=== PATIENT | female | born 1970 | race American Indian/Alaskan Native ===

== ENCOUNTER 2020-06-12 00:53 | Inpatient (IN) | payer OTHER, SELFPAY ==
[2020-06-12] MEDS ORDERED: SODIUM CHLORIDE 0.9% 1000 ML 1,000 ML IV ONE (01:23)
[2020-06-12] MEDS ORDERED: LORazepam 2 MG/ML VIAL IV ONE ×2 (01:31→01:51)
--- NOTE | 2020-06-12 01:34 | Emergency Department Report ---
ED Seizure HPI - General Chief Complaint: Seizure Stated Complaint: SEIZURE Time Seen by Provider: 06/12/20 01:19 Source: patient, EMS Mode of arrival: Stretcher Limitations: Altered Mental Status - History of Present Illness Initial Comments: 50-year-old female presents to ED following seizure at home. Patient has history of seizures, chronic back pain. Reports noncompliance with phenobarbital. Patient cannot remember the last time she took it. She is alert and oriented at this time. Only complaint is a headache. Patient was given Versed 5 mg IM by EMS prior to arrival. MD Complaint: seizure -: This morning Witnessed:: Yes Seizure History: known seizure disorder, history of non-compliance Place: home Associated Symptoms: denies: fever/chills Treatments Prior to Arrival: benzodiazepines (Versed 5 mg IM) - Related Data Previous Rx's Medication Instructions Recorded Last Taken Type PHENobarbitaL [Phenobarbital] 64.8 mg PO BID #60 tablet 02/20/20 Unknown Rx Allergies Allergy/AdvReac Type Severity Reaction Status Date / Time carisoprodol [From Soma] Allergy Hives Verified 02/20/20 04:11 divalproex sodium Allergy Rash Verified 02/20/20 04:11 [From Depakote] levetiracetam [From Keppra] Allergy Unknown Verified 06/12/20 01:11 ED Review of Systems ROS: Stated complaint: SEIZURE Other details as noted in HPI Comment: All other systems reviewed and negative Constitutional: denies: fever Neurological: as per HPI, headache ED Past Medical Hx - Past Medical History Previous Medical History?: Yes Hx Seizures: Yes Hx Psychiatric Treatment: Yes (depression ptsd) Hx Asthma: Yes Additional medical history: Chronic back pain. Irregular heart beat - Surgical History Past Surgical History?: Yes Additional Surgical History: Tubal Ligation. Hysterectomy - Social History Smoking Status: Never Smoker Substance Use Type: None - Medications Home Medications: Home Medications Medication Instructions Recorded Confirmed Last Taken Type PHENobarbitaL [Phenobarbital] 64.8 mg PO BID #60 tablet 02/20/20 06/12/20 Unknown Rx ED Physical Exam - General Limitations: Altered Mental Status General appearance: alert, in no apparent distress, anxious - Head Head exam: Present: atraumatic, normocephalic - Eye Eye exam: Present: normal appearance, EOMI - ENT ENT exam: Present: mucous membranes moist - Neck Neck exam: Present: normal inspection - Respiratory Respiratory exam: Present: normal lung sounds bilaterally. Absent: respiratory distress - Cardiovascular Cardiovascular Exam: Present: normal rhythm, tachycardia - GI/Abdominal GI/Abdominal exam: Present: soft. Absent: distended, tenderness - Extremities Exam Extremities exam: Present: normal inspection - Neurological Exam Neurological exam: Present: alert, oriented X3, CN II-XII intact. Absent: motor sensory deficit - Psychiatric Psychiatric exam: Present: normal affect, normal mood - Skin Skin exam: Present: warm, dry, intact, normal color ED Course Vital Signs 06/12/20 06/12/20 06/12/20 01:12 01:15 01:16 Temperature 98.4 F Pulse Rate 122 H 120 H Respiratory 28 H 29 H 18 Rate Blood Pressure Blood Pressure 135/68 [Left] O2 Sat by Pulse 100 82 L 98 Oximetry 06/12/20 06/12/20 06/12/20 01:31 01:45 02:01 Temperature Pulse Rate 154 H 145 H 116 H Respiratory 49 H 71 H 20 Rate Blood Pressure 135/91 115/89 125/80 Blood Pressure [Left] O2 Sat by Pulse 59 L 84 100 Oximetry 06/12/20 02:15 Temperature Pulse Rate 85 Respiratory 17 Rate Blood Pressure 91/61 Blood Pressure [Left] O2 Sat by Pulse 94 Oximetry ED Medical Decision Making - Lab Data Result diagrams: 06/12/20 01:30 06/12/20 01:30 - Medical Decision Making Patient alert and oriented upon initial ED arrival, however extremely anxious. Patient was given Ativan 2 mg. She is now calm, asleep, and tachycardia has re solved. Phenobarbital given. Labs show hyponatremia with sodium of 124. This is a major difference compared to when patient was here 3 months ago and had a sodium of 144. IV fluids given. Patient also hypokalemic with a potassium of 3.1. This has been repleted. Spoke with nurse practitioner for the hospitalist, who will admit the patient for further management. - Differential Diagnosis Medication noncompliance, electrolyte abnormality Critical care attestation.: If time is entered above; I have spent that time in minutes in the direct care of this critically ill patient, excluding procedure time. ED Disposition Clinical Impression: Seizure, Hyponatremia, Hypokalemia Disposition: OP ADMIT IP TO THIS HOSP Is pt being admited?: Yes Condition: Stable Referrals: PRIMARY CARE, [Primary Care Provider] - 3-5 Days Time of Disposition: 03:12
[2020-06-12 02:03] LABS: Basophils % (Auto) 0.4 % (0.0-1.8); Eosinophils % (Auto) 0.3 % (0.0-4.3); Hematocrit 34.9 % (30.3-42.9); Lymphocytes # (Auto) 1.3 K/mm3 (1.2-5.4); Lymphocytes % (Auto) 26.4 % (13.4-35.0); Mean Corpuscular HGB Conc 34 % (30-34); Mean Corpuscular Volume 91 fl (79-97); Monocytes # (Auto) 0.6 K/mm3 (0.0-0.8); Monocytes % (Auto) 13.2 % (0.0-7.3); Platelet Count 206 K/mm3 (140-440); Red Blood Count 3.83 M/mm3 (3.65-5.03); Red Cell Distribution Width 14.2 % (13.2-15.2)
[2020-06-12 02:22] LABS: BUN/Creatinine Ratio 13; Blood Urea Nitrogen 13 mg/dL (7-17); Hemolysis Index 11
[2020-06-12] MEDS ORDERED: POTASSIUM CHLORIDE ER 20 MEQ TAB PO ONE ×3 (02:44→20:00)
[2020-06-12] MEDS ORDERED: PHENobarbital 15 MG TAB PO ONE (02:56)
--- NOTE | 2020-06-12 04:30 | History and Physical Report ---
<ARAMIS RENDON - Last Filed: 06/12/20 06:51> History of Present Illness Date of examination: 06/12/20 Date of admission: 06/12/20 04:07 Chief complaint: Seizure disorder History of present illness: 50-year-old female presents to ED following seizure at home. Patient has history of seizures, chronic back pain. Reports noncompliance with phenobarbital. Patient cannot remember the last time she took it. She is alert and oriented at this time. Only complaint is a headache. Patient was given Versed 5 mg IM by EMS prior to arrival. patient seen at bedside. She admits non compliance with anti -seizure medicine-discussed medication compliance ED work up WBC 4.8, Hemoglobin 12.0, sodium 124, Potassium 3.1 serum glucose 108. patient seen at bedside. mild shaking noted. Patient advised to be compliance with medical regimen CT of the head ordered. Past History Past Medical History: seizures Past Surgical History: No surgical history Social history: no significant social history Family history: no significant family history Medications and Allergies Allergies Allergy/AdvReac Type Severity Reaction Status Date / Time carisoprodol [From Soma] Allergy Hives Verified 02/20/20 04:11 divalproex sodium Allergy Rash Verified 02/20/20 04:11 [From Depakote] levetiracetam [From Keppra] Allergy Unknown Verified 06/12/20 01:11 Home Medications Medication Instructions Recorded Confirmed Last Taken Type PHENobarbitaL [Phenobarbital] 64.8 mg PO BID #60 tablet 02/20/20 06/12/20 Unknown Rx Escitalopram Oxalate [Lexapro] 5 mg PO QDAY #30 tablet 06/12/20 Unknown Rx PHENobarbitaL [PHENobarbital] 64.8 mg PO Q12HR #60 tablet 06/12/20 Unknown Rx risperiDONE [RisperDAL] 0.25 mg PO BID tablet 06/12/20 Unknown Rx risperiDONE [RisperDAL] 0.25 mg PO BID #60 tab 06/12/20 Unknown Rx traZODone [Desyrel] 50 mg PO QHS tablet 06/12/20 Unknown Rx traZODone [Desyrel] 50 mg PO QHS #30 tab 06/12/20 Unknown Rx Aspirin EC [Halfprin EC] 81 mg PO QDAY #30 tablet 06/14/20 Unknown Rx PHENobarbitaL [PHENobarbital] 64.8 mg PO BID #60 tablet 06/14/20 Unknown Rx Spironolactone [Aldactone] 25 mg PO QDAY #30 tablet 06/14/20 Unknown Rx carvediloL [Coreg] 6.25 mg PO BID #60 tablet 06/14/20 Unknown Rx lisinopriL [Zestril TAB] 2.5 mg PO QDAY #30 tablet 06/14/20 Unknown Rx Review of Systems Constitutional: weakness Exam - Constitutional Vitals: Temp Pulse Resp BP Pulse Ox 98.4 F 85 17 91/61 94 06/12/20 01:15 06/12/20 02:15 06/12/20 02:15 06/12/20 02:15 06/12/20 02:15 General appearance: Present: mild distress - EENT Eyes: Present: PERRL ENT: hearing intact, clear oral mucosa - Neck Neck: Present: supple, normal ROM - Respiratory Respiratory effort: normal Respiratory: bilateral: CTA - Cardiovascular Heart rate: 83 Heart Sounds: Present: S1 & S2. Absent: rub, click - Extremities Extremities: pulses symmetrical, No edema Peripheral Pulses: within normal limits - Abdominal General gastrointestinal: Present: soft, non-tender, non-distended, normal bowel sounds Female genitourinary: Present: normal - Integumentary Integumentary: Present: clear, warm, dry - Musculoskeletal Musculoskeletal: generalized weakness - Psychiatric Psychiatric: appropriate mood/affect, intact judgment & insight - Neurologic Neurologic: CNII-XII intact, moves all extremities Results - Labs CBC & Chem 7: 06/12/20 04:53 06/12/20 04:53 Labs: Abnormal lab results 06/12/20 06/12/20 06/12/20 Range/Units 01:30 01:30 01:30 [place] % (Auto) 13.2 H (0.0-7.3) % Sodium 124 L (137-145) mmol/L Potassium 3.1 L (3.6-5.0) mmol/L Chloride 74.0 L (98-107) mmol/L Glucose 108 H (65-100) mg/dL Phenobarbital 7.6 L (15.0-40.0) ug/mL Assessment and Plan - Patient Problems (1) Hypokalemia Current Visit: Yes Status: Acute Plan to address problem: 3.1 on admission-Replaced Monitor electrolyte Bmp and mag level (2) Hyponatremia Current Visit: Yes Status: Acute Plan to address problem: 124 on admission-was 144 last admission Given normal salin bolus in ED IV hydration with normal salin Monitor sodium level (3) Seizure Current Visit: Yes Status: Acute Plan to address problem: Likely 2/2 to noncompliance with anti seizure medicine safety, fall and seizure precaution Resume home anti-seizure medicine Discussed medication compliance (4) DVT prophylaxis Current Visit: Yes Status: Acute Plan to address problem: lesly <ADRIAN SOTO E - Last Filed: 06/15/20 07:24> History of Present Illness Date of admission: 06/12/20 04:07 Medications and Allergies Active Meds: Active Medications Aspirin (Halfprin Ec) 81 mg PO QDAY [facility] Last Admin: 06/14/20 17:30 Dose: 81 mg Documented by: Carvedilol (Coreg) 6.25 mg PO BID [facility] Last Admin: 06/14/20 21:26 Dose: 6.25 mg Documented by: Enoxaparin Sodium (Enoxaparin) 40 mg SUB-Q QDAY@1000 [facility] Last Admin: 06/14/20 10:38 Dose: 40 mg Documented by: Escitalopram Oxalate (Lexapro) 5 mg PO QDAY [facility] Last Admin: 06/14/20 10:38 Dose: 5 mg Documented by: Lisinopril (Zestril) 2.5 mg PO QDAY [facility] Last Admin: 06/14/20 17:31 Dose: 2.5 mg Documented by: Lorazepam (Ativan) 2 mg IV Q4H PRN PRN Reason: Agitation Phenobarbital (Phenobarbital) 64.8 mg PO BID [facility] Last Admin: 06/14/20 21:26 Dose: 64.8 mg Documented by: Risperidone (Risperdal) 0.25 mg PO BID [facility] Last Admin: 06/14/20 21:26 Dose: 0.25 mg Documented by: Spironolactone (Aldactone) 25 mg PO QDAY [facility] Last Admin: 06/14/20 17:30 Dose: 25 mg Documented by: Trazodone HCl (Desyrel) 50 mg PO QHS [facility] Last Admin: 06/14/20 21:26 Dose: 50 mg Documented by: Exam - Constitutional Vitals: Temp Pulse Resp BP Pulse Ox 98.5 F 86 16 114/70 100 06/15/20 04:26 06/15/20 04:26 06/15/20 04:26 06/15/20 04:26 06/15/20 04:26 Results - Labs CBC & Chem 7: 06/12/20 07:53 06/14/20 05:12 Assessment and Plan I saw and evaluated the patient. I agree with the findings and the plan of care as documented in the Nurse Practitioner's~note, with the following corrections and additions.
[2020-06-12] MEDS ORDERED: LORazepam 2 MG/ML VIAL IV PRN (04:40)
[2020-06-12 05:11] LABS: Hematocrit 32.7 % (30.3-42.9); Hemoglobin 11.3 gm/dl (10.1-14.3); Mean Corpuscular HGB Conc 35 % (30-34); Mean Corpuscular Volume 91 fl (79-97); Platelet Count 191 K/mm3 (140-440); Red Blood Count 3.58 M/mm3 (3.65-5.03); Red Cell Distribution Width 14.9 % (13.2-15.2)
[2020-06-12] MEDS ORDERED: SODIUM CHLORIDE 0.9% 1000 ML 1,000 ML ONE (05:14)
[2020-06-12] MEDS: SODIUM CHLORIDE 0.9% 1000 ML 1,000 ML IV SCH ×2 (05:18→22:00)
[2020-06-12 05:26] LABS: BUN/Creatinine Ratio 16; Blood Urea Nitrogen 11 mg/dL (7-17); Calcium 9.1 mg/dL (8.4-10.2); Hemolysis Index 45
[2020-06-12 08:16] LABS: Hematocrit 31.5 % (30.3-42.9); Hemoglobin 11.2 gm/dl (10.1-14.3); Mean Corpuscular HGB Conc 36 % (30-34); Mean Corpuscular Volume 90 fl (79-97); Platelet Count 179 K/mm3 (140-440); Red Blood Count 3.48 M/mm3 (3.65-5.03); Red Cell Distribution Width 14.6 % (13.2-15.2)
[2020-06-12 08:54] LABS: Blood Urea Nitrogen 9 mg/dL (7-17); Calcium 8.8 mg/dL (8.4-10.2); Hemolysis Index 10
[2020-06-12 08:55] LABS: BUN/Creatinine Ratio 13
[2020-06-12] MEDS ORDERED: POTASSIUM CHLORIDE ER 20 MEQ TAB PO NR (09:10)
[2020-06-12] MEDS: PHENobarbital 32.4 MG TAB PO SCH ×2 (09:36→21:57)
[2020-06-12] MEDS: ENOXAPARIN 40 MG/0.4 ML INJ SUB-Q SCH (09:37)
[2020-06-12] MEDS ORDERED: ENOXAPARIN 30 MG/0.3 ML INJ SUB-Q SCH (10:00)
--- NOTE | 2020-06-12 11:59 | Cat Scan Report ---
CT head/brain wo con INDICATION / CLINICAL INFORMATION: 50 years Female; Seizure. TECHNIQUE: Routine CT head without contrast. All CT scans at this location are performed using CT dos e reduction for ALARA by means of automated exposure control. COMPARISON: None. FINDINGS: BRAIN / INTRACRANIAL CONTENTS: No acute hemorrhage, mass effect, midline shift, hydrocephalus, or acu te, large territorial infarct. No chronic infarct appreciated. There may be mild superior vermian atrophy present-would question EtOH usage. However, findings may b e within normal limits. No significant white matter abnormality. CRANIOCERVICAL JUNCTION: No significant abnormality. ORBITS: No significant abnormality of visualized orbits. SINUSES / MASTOIDS: No significant abnormality in the visualized paranasal sinuses or mastoid air elliott ls. ADDITIONAL FINDINGS: None. IMPRESSION: 1. No focal mass, hemorrhage, hydrocephalus, or acute, large territorial infarct. Signer Name: Chema Winters MD, III Signed: 06/12/2020 11:55 AM Workstation Name: [id number]
--- NOTE | 2020-06-12 13:12 | Consultation ---
History of Present Illness - Reason for Consult Consult date: 06/12/20 Reason for consult: off medication - History of Present Psychiatric Illness Rochelle Colunga is a 50y/o female patient who presented to the ER for seizure activity at home and noncompliance with phenobarbital. During my interview with the patient, she is lying in bed awake. She is a/o x 3. She is calm and cooperative. She is polite. She has a quiet disposition. She makes good eye contact. She says she needs to be back on her medication for "PTSD, unipolar and psychosis." The patient states she has "been off of her meds since moving from [place]." She says she has been in [place] since last April. She says she's been unable to see a psychiatrist since then. The patient denies hallucinations, but states "I'm a little paranoid. I have a lot going on." She says "I feel a little stressed." She says "I'm not always paranoid but lately. I really need my medications." The patient was unable to tell which medication she was recently on, but "lexapro." She says "I definitely need the lexapro." The patient denies hallucinations. When asked about SI/HI, she says "no, I'm not none of that. I'm not suicidal, but I feel like people are after me sometimes." She says "I think I need to be watched for people being after me." She denies any illicit drug use, alcohol, or nicotine. PAST PSYCHIATRIC HISTORY: Diagnoses: PTSD, Unipolar, Psychosis Suicide attempts or Self-harm behavior: Denies Prior psychiatric hospitalizations: Substance Abuse history: Denies Previous psychiatric medications tried: lexapro and geodon Outpatient treatment: Denies PAST MEDICAL HISTORY: None reported Family Psychiatric History: None reported or documented SOCIAL HISTORY Marital Status: Single Living Arrangements: In extended stay Employment Status: Access to guns/weapons: Denies Education: Some college History of Abuse: None reported Legal History: None reported REVIEW OF SYSTEMS Constitutional: Negative for weight loss ENT: Negative for stridor Respiratory: Negative for cough or hemoptysis All other systems reviewed and are negative MENTAL STATUS EXAMINATION General Appearance: Dressed appropriately Behavior: good eye contact, calm and cooperative, quiet Cooperation: Participating/engaged Psychomotor Behavior: Psychomotor normal Mood: "stressed, a lot going on" Affect and affective range: congruent with mood Thought Process: goal oriented Thought Content: within reality Speech: Normal rate, volume and rhythm Suicidal Ideation: denies SI Homicidal Ideation: Denies HI Hallucinations: Denies Delusions: states feel paranoid Impulse Control: unimpaired Insight and Judgment: Limited insight and judgment Memory: Normal Attention: Normal Orientation: Alert, oriented Assessment and Plan Bipolar Disorder TREATMENT Scripts given: Risperidone 0.25mg po BID Lexapro 5mg po daily Trazodone 50mg po qhs Sitter: Defer to primary Medical: Per priamary Disposition: Do not recommend acute inpatient psychiatric treatment at this time. The patient can be treated on an outpatient basis. The patient understands that if thoughts of self harm arise or thoughts to harm others she should seek immediate assistance including, but not limited to the crisis hotline, 911/ER. The grand scribe to give the patient resources for outpatient psychiatry, programs that offer assistance with medication, and cognitive behavior therapy The grand scribe to further discuss safety plan with the patient The patient to follow up with outpatient psychiatry in 7 to 14 days upon discharge Will sign off. Thank you for this consult. Medications and Allergies Allergies Allergy/AdvReac Type Severity Reaction Status Date / Time carisoprodol [From Soma] Allergy Hives Verified 02/20/20 04:11 divalproex sodium Allergy Rash Verified 02/20/20 04:11 [From Depakote] levetiracetam [From Keppra] Allergy Unknown Verified 06/12/20 01:11 Home Medications Medication Instructions Recorded Confirmed Last Taken Type PHENobarbitaL [Phenobarbital] 64.8 mg PO BID #60 tablet 02/20/20 06/12/20 Unknown Rx Escitalopram Oxalate [Lexapro] 5 mg PO QDAY #30 tablet 06/12/20 Unknown Rx risperiDONE [RisperDAL] 0.25 mg PO BID #60 tab 06/12/20 Unknown Rx traZODone [Desyrel] 50 mg PO QHS #30 tab 06/12/20 Unknown Rx Active Meds: Active Medications Enoxaparin Sodium (Enoxaparin) 40 mg SUB-Q QDAY@1000 [facility] Last Admin: 06/12/20 09:37 Dose: 40 mg Documented by: Sodium Chloride (Nacl 0.9% 1000 Ml) 1,000 mls @ 125 mls/hr IV DIRECT [facility] Last Admin: 06/12/20 05:18 Dose: 125 mls/hr Documented by: Lorazepam (Ativan) 2 mg IV Q4H PRN PRN Reason: Agitation Phenobarbital (Phenobarbital) 64.8 mg PO Q12HR [facility] Last Admin: 06/12/20 09:36 Dose: 64.8 mg Documented by: Mental Status Exam - Vital signs Last Vital Signs Temp 98.4 F 06/12/20 08:34 Pulse 105 H 06/12/20 08:34 Resp 16 06/12/20 08:34 BP 115/76 06/12/20 08:34 Pulse Ox 100 06/12/20 08:34 Results Result Diagrams: 06/12/20 07:53 06/12/20 07:53 Abnormal lab results 06/12/20 06/12/20 06/12/20 Range/Units 01:30 01:30 01:30 RBC (3.65-5.03) M/mm3 MCHC (30-34) % [place] % (Auto) 13.2 H (0.0-7.3) % Sodium 124 L (137-145) mmol/L Potassium 3.1 L (3.6-5.0) mmol/L Chloride 74.0 L (98-107) mmol/L Carbon Dioxide (22-30) mmol/L Glucose 108 H (65-100) mg/dL Phenobarbital 7.6 L (15.0-40.0) ug/mL 06/12/20 06/12/20 06/12/20 Range/Units 04:53 04:53 07:53 RBC 3.58 L 3.48 L (3.65-5.03) M/mm3 MCHC 35 H 36 H (30-34) % [place] % (Auto) (0.0-7.3) % Sodium 128 L (137-145) mmol/L Potassium 3.0 L (3.6-5.0) mmol/L Chloride 83.0 L (98-107) mmol/L Carbon Dioxide (22-30) mmol/L Glucose (65-100) mg/dL Phenobarbital (15.0-40.0) ug/mL 06/12/20 Range/Units 07:53 RBC (3.65-5.03) M/mm3 MCHC (30-34) % [place] % (Auto) (0.0-7.3) % Sodium 130 L (137-145) mmol/L Potassium 2.9 L* (3.6-5.0) mmol/L Chloride 85.6 L (98-107) mmol/L Carbon Dioxide 33 H (22-30) mmol/L Glucose (65-100) mg/dL Phenobarbital (15.0-40.0) ug/mL All other labs normal.
--- NOTE | 2020-06-12 15:28 | Discharge Summary ---
<ELBALeonardaSTEVEIrlanda - Last Filed: 06/12/20 15:30> Providers - Providers Date of Admission: 06/12/20 04:07 Attending physician: MARIA TERESA ROCHA 06/12/20 06:30 Consult to Physician [CONS] Routine Comment: Consulting Provider: AMANDEEP REDDY Physician Instructions: Reason For Exam: seizure 06/12/20 09:12 Consult to Case Management [CONS] Routine Services Needed at Discharge: Magnet Maker Notified:: cm notified Consult to Mental Health [CONS] Routine Reason For Exam: depression, ptsd Primary care physician: SUPPORT SERVICE TECH Hospitalization Condition: Stable Hospital course: This 50-year-old female with seizure, chronic back pain, PTSD, depression and noncompliance presents to the emergency department on 06/12 for a seizure at home. The patient was given 5 mg of Versed IM by EMS prior to arrival. Work-up in the emergency department showed hyponatremia at 124 and hypokalemia at 3.1. A CT head obtained on 06/12 shows no acute abnormality. This morning patient was hypokalemic to 2.9 and was given p.o. potassium. A mental health consult was obtained which does not recommend inpatient hospitalization at this time. They recommended outpatient follow-up for psych care within 1 to 2 weeks of discharge. On 06/12 her COVID-19 PCR was negative. Patient will need to follow-up with her primary care physician within 1 to 2 weeks of discharge. Compliance with medical regimen is strongly encouraged. 1) Hypokalemia Current Visit: Yes Status: Acute Plan to address problem: Potassium on admit was 3.1 which was repleted 06/12 potassium 2.9, repleted (2) Hyponatremia Current Visit: Yes Status: Acute Plan to address problem: Sodium 124 on admission, was 144 last admission S/p normal saline bolus in the ED IV hydration with normal saline A.m. BMP shows a sodium of 130 (3) Seizure Current Visit: Yes Status: Acute Plan to address problem: Likely 2/2 to noncompliance with anti seizure medicine Continue safety, fall and seizure precaution Resume home anti-seizure medicine Strongly encourage medical compliance (4) Hypochloremia Current Visit: Yes Status: Acute Plan to address problem: Admit chloride 74 S/p normal saline in the ED and IV hydration with normal saline A.m. chloride 80.6 l Disposition: DC-01 TO HOME OR SELFCARE Core Measure Documentation - Palliative Care Palliative Care/ Comfort Measures: Not Applicable - Core Measures Any of the following diagnoses?: none Exam - Constitutional Vitals: Temp Pulse Resp BP Pulse Ox 98.7 F 94 H 18 115/70 100 06/12/20 13:45 06/12/20 14:00 06/12/20 13:45 06/12/20 13:45 06/12/20 08:34 General appearance: Present: no acute distress - EENT Eyes: Present: PERRL, EOM intact ENT: hearing intact, clear oral mucosa - Neck Neck: Present: supple, normal ROM - Respiratory Respiratory effort: normal Respiratory: bilateral: CTA - Cardiovascular Rhythm: regular Heart Sounds: Present: S1 & S2. Absent: systolic murmur, diastolic murmur - Extremities Extremities: no ischemia, pulses intact, pulses symmetrical, No edema, normal temperature, normal color, Full ROM Peripheral Pulses: within normal limits - Abdominal General gastrointestinal: Present: soft, non-tender, non-distended, normal bowel sounds - Integumentary Integumentary: Present: warm, dry - Musculoskeletal Musculoskeletal: strength equal bilaterally - Psychiatric Psychiatric: cooperative - Neurologic Neurologic: CNII-XII intact, no focal deficits, moves all extremities - Allied Health Allied health notes reviewed: nursing, social work Plan Activity: advance as tolerated, no driving until cleared by PCP Diet: regular Additional Instructions: Follow-up with your primary care physician and neurology within 1 to 2 weeks of discharge. Strongly encouraged for you to follow-up with outpatient psychiatric services within 1 to 2 weeks of discharge. Follow up with: PRIMARY CARE, [Primary Care Provider] - 3-5 Days [facility] [Outside] - 7 Days Prescriptions: traZODone [Desyrel] 50 mg PO QHS #30 tab Escitalopram Oxalate [Lexapro] 5 mg PO QDAY #30 tablet PHENobarbitaL [PHENobarbital] 64.8 mg PO Q12HR #60 tablet risperiDONE [RisperDAL] 0.25 mg PO BID #60 tab <MARIA TERESA ROCHA - Last Filed: 06/12/20 17:59> Providers - Providers Date of Admission: 06/12/20 04:07 Attending physician: MARIA TERESA ROCHA 06/12/20 06:30 Consult to Physician [CONS] Routine Comment: Consulting Provider: AMANDEEP REDDY Physician Instructions: Reason For Exam: seizure 06/12/20 09:12 Consult to Case Management [CONS] Routine Services Needed at Discharge: Magnet Maker Notified:: cm notified Consult to Mental Health [CONS] Routine Reason For Exam: depression, ptsd Primary care physician: SUPPORT SERVICE TECH Exam - Constitutional Vitals: Temp Pulse Resp BP Pulse Ox 97.9 F 103 H 18 101/61 98 06/12/20 16:27 06/12/20 16:27 06/12/20 16:27 06/12/20 16:27 06/12/20 16:27
--- NOTE | 2020-06-12 15:43 | Consultation ---
History of Present Illness Consult date: 06/12/20 Reason for Consult: recurrent seizures Chief complaint: recurrent seizures, noncompliance to medication History of present illness: This is a comprehensive neurological consultation through video zoom on Ms. Rochelle Colunga who is a very pleasant 50-year-old woman with 40+ history of seizure disorder presented to the emergency room with the symptoms of recurrent seizures. She reported that she has not been taken her phenobarbital for the last couple of months due to variety of reason;, cannot afford to buy the medic ine, and unable to follow up with the doctors. She used to take phenobarbital 64.8 mg twice a day but despite taking these doses she had some breakthrough seizures in between. She had tried few medication in the past including Keppra that caused her side effects and Depakote that caused her pancreatitis. She also has some history of back injury and reported that due to that she has some difficulty walking like imbalance. In addition she has some hand jitteriness. Her CT scan of the brain was reported negative in the emergency room. She has not had any recurrent seizures since her admission. Past History Past Medical History: seizures, other (imbalance from back injury) Past Surgical History: No surgical history Social history: no significant social history Family history: no significant family history Medications and Allergies Allergies Allergy/AdvReac Type Severity Reaction Status Date / Time carisoprodol [From Soma] Allergy Hives Verified 02/20/20 04:11 divalproex sodium Allergy Rash Verified 02/20/20 04:11 [From Depakote] levetiracetam [From Keppra] Allergy Unknown Verified 06/12/20 01:11 Home Medications Medication Instructions Recorded Confirmed Last Taken Type PHENobarbitaL [Phenobarbital] 64.8 mg PO BID #60 tablet 02/20/20 06/12/20 Unknown Rx Escitalopram Oxalate [Lexapro] 5 mg PO QDAY #30 tablet 06/12/20 Unknown Rx PHENobarbitaL [PHENobarbital] 64.8 mg PO Q12HR #60 tablet 06/12/20 Unknown Rx risperiDONE [RisperDAL] 0.25 mg PO BID tablet 06/12/20 Unknown Rx risperiDONE [RisperDAL] 0.25 mg PO BID #60 tab 06/12/20 Unknown Rx traZODone [Desyrel] 50 mg PO QHS tablet 06/12/20 Unknown Rx traZODone [Desyrel] 50 mg PO QHS #30 tab 06/12/20 Unknown Rx Active Meds: Active Medications Enoxaparin Sodium (Enoxaparin) 40 mg SUB-Q QDAY@1000 ARAVIND Last Admin: 06/12/20 09:37 Dose: 40 mg Documented by: Escitalopram Oxalate (Lexapro) 5 mg PO QDAY [facility] Sodium Chloride (Nacl 0.9% 1000 Ml) 1,000 mls @ 125 mls/hr IV DIRECT [facility] Last Admin: 06/12/20 05:18 Dose: 125 mls/hr Documented by: Lorazepam (Ativan) 2 mg IV Q4H PRN PRN Reason: Agitation Phenobarbital (Phenobarbital) 64.8 mg PO Q12HR [facility] Last Admin: 06/12/20 09:36 Dose: 64.8 mg Documented by: Risperidone (Risperdal) 0.25 mg PO BID ARAVIND Trazodone HCl (Desyrel) 50 mg PO QHS [facility] Review of Systems All systems: negative (and jitteriness/shaking and imbalance from lower back injury in the past) Physical Examination - Vital Signs Vital Signs: Vital Signs Pulse Resp Pulse Ox 122 H 28 H 100 06/12/20 01:12 06/12/20 01:12 06/12/20 01:12 - Neurologic Cranial nerve examination: PERRL, EOMI, V1/V2/V3 grossly intact, face symmetric, tongue midline, intact shoulder shrug, normal palatal elevation Sensorimotor examination: intact Detailed motor examination: grossly full strength in Posture: other (deferred) Cerebellar examination: other (bilateral hand tremors) Results - Laboratory Findings CBC and BMP: 06/12/20 07:53 06/12/20 07:53 Abnormal Lab Findings: Abnormal Labs 06/12/20 06/12/20 06/12/20 01:30 01:30 01:30 RBC MCHC [place] % (Auto) 13.2 H Sodium 124 L Potassium 3.1 L Chloride 74.0 L Carbon Dioxide Glucose 108 H Phenobarbital 7.6 L 06/12/20 06/12/20 06/12/20 04:53 04:53 07:53 RBC 3.58 L 3.48 L MCHC 35 H 36 H [place] % (Auto) Sodium 128 L Potassium 3.0 L Chloride 83.0 L Carbon Dioxide Glucose Phenobarbital 10/26/20 07:53 RBC MCHC [place] % (Auto) Sodium 130 L Potassium 2.9 L* Chloride 85.6 L Carbon Dioxide 33 H Glucose Phenobarbital - Diagnostic Findings Additional findings: CT scan of the brain was reported negative Assessment and Plan 1) Recurrent seizures due to noncompliance of anti-epileptic drug 2) Noncompliance to anti-epileptic drugphenobarbital Plan: 1) Please run the blood test for phenobarbital trough level in the morning and if the level is not therapeutic( between 15 and 45) then please increase the dose of phenobarbital as: 64.8 mg in the morning and 90 mg in the evening. 2) Patient can be observed for the next 24 hours to make sure there is no recurrent seizures and if remains stable neuro mace patient can be discharged. 3) Patient has been instructed not to drive, operate heavy machinery, or swim alone. 4) Seizure precaution while the patient is in the hospital 5) Patient needs follow-up visit with a local neurologist in a couple of weeks upon discharge home I discussed at length with the patient in great detail about her condition and possible treatment options. I answered all the questions posed by the patient t o her best satisfaction. Patient agreed with the plan. Thank you very much for allowing us in the care of your patient. Please call us if you have any questions.
[2020-06-12 17:22] LABS: BUN/Creatinine Ratio 11; Blood Urea Nitrogen 10 mg/dL (7-17); Calcium 9.4 mg/dL (8.4-10.2); Hemolysis Index 5
[2020-06-12] MEDS: risperiDONE 0.25 MG TAB PO SCH ×2 (17:30→21:57)
[2020-06-12] MEDS: ESCITALOPRAM 10 MG/10 ML ORAL LIQD PO SCH (18:49)
--- NOTE | 2020-06-12 18:49 | Progress Note ---
Assessment and Plan Assessment and plan: 1) Hypokalemia Current Visit: Yes Status: Acute Plan to address problem: Potassium on admit was 3.1 which was repleted 06/12 potassium 2.9, repleted 06/12 repeat potassium 3.3, repleted Trend BMP Patient had a 9 beat run of V. tach therefore cardiology was consulted (2) Hyponatremia Current Visit: Yes Status: Acute Plan to address problem: Sodium 124 on admission, was 144 last admission S/p normal saline bolus in the ED IV hydration with normal saline A.m. BMP shows a sodium of 130 Trend BMP (3) Hypochloremia Current Visit: Yes Status: Acute Plan to address problem: Admit chloride 74 S/p normal saline in the ED and IV hydration with normal saline A.m. chloride 80.6 Trend BMP (4) Seizure Current Visit: Yes Status: Chronic Plan to address problem: Likely 2/2 to noncompliance with anti seizure medicine Continue safety, fall and seizure precaution Resume home anti-seizure medicine Strongly encourage medical compliance Neurology consulted We will obtain a.m. Depakote level and adjust dose as necessary (5) Bipolar Current Visit: Yes Status: Chronic Plan to address problem: Psych consult, appreciate recommendations Psych started: Risperidone 0.25mg po BID, Lexapro 5mg po daily, trazodone 50mg po qhs (6) DVT prophylaxis Current Visit: Yes Status: Acute Plan to address problem: SCDs to bilateral lower extremities while in bed Lovenox subcu History Interval history: This 50-year-old female with seizure, chronic back pain, PTSD, depression and noncompliance presents to the emergency department on 06/12 for a seizure at home. The patient was given 5 mg of Versed IM by EMS prior to arrival. Work-up in the emergency department showed hyponatremia at 124 and hypokalemia at 3.1. A CT head obtained on 06/12 shows no acute abnormality. This morning patient was hypokalemic to 2.9 and was given p.o. potassium and on repeat it is 3.3 which is again repleted. Continue to trend BMP. A mental health consult was obtained who started the patient on bipolar regimen and does not recommend inpatient hospitalization at this time. They recommended outpatient follow-up for psych care within 1 to 2 weeks of discharge. On 06/12 her COVID-19 PCR was negative. Per neurology we will check her Depakote level in the a.m. and if it is decreased we will adjust the doses as needed. Patient had a 9 beat run of V. tach and cardiology was consulted. Her discharge was held due to continued electrolyte derangement, per neurology to observe the patient for 24 hours for any additional seizure activities and for this new asymptomatic V. tach. Patient also does not have a place to go after discharge. CM has been consulted and made aware of the situation. Hospitalist Physical - Physical exam Narrative exam: General appearance: Present: no acute distress - EENT Eyes: Present: PERRL, EOM intact ENT: hearing intact, clear oral mucosa - Neck Neck: Present: supple, normal ROM - Respiratory Respiratory effort: normal Respiratory: bilateral: CTA - Cardiovascular Rhythm: regular Heart Sounds: Present: S1 & S2. Absent: systolic murmur, diastolic murmur - Extremities Extremities: no ischemia, pulses intact, pulses symmetrical, No edema, normal temperature, normal color, Full ROM Peripheral Pulses: within normal limits - Abdominal General gastrointestinal: Present: soft, non-tender, non-distended, normal bowel sounds - Integumentary Integumentary: Present: warm, dry - Musculoskeletal Musculoskeletal: strength equal bilaterally - Psychiatric Psychiatric: cooperative - Neurologic Neurologic: CNII-XII intact, no focal deficits, moves all extremities - Constitutional Vitals: Temp Pulse Resp BP Pulse Ox 97.9 F 103 H 18 101/61 98 06/12/20 16:27 06/12/20 16:27 06/12/20 16:27 06/12/20 16:27 06/12/20 16:27 General appearance: Present: no acute distress Results - Labs CBC & Chem 7: 06/12/20 07:53 06/12/20 16:48 Labs: Laboratory Last Values WBC 5.0 K/mm3 (4.5-11.0) 06/12/20 07:53 RBC 3.48 M/mm3 (3.65-5.03) L 06/12/20 07:53 Hgb 11.2 gm/dl (10.1-14.3) 06/12/20 07:53 Hct 31.5 % (30.3-42.9) 06/12/20 07:53 MCV 90 fl (79-97) 06/12/20 07:53 MCH 32 pg (28-32) 06/12/20 07:53 MCHC 36 % (30-34) H 06/12/20 07:53 RDW 14.6 % (13.2-15.2) 06/12/20 07:53 Plt Count 179 K/mm3 (140-440) 06/12/20 07:53 Lymph % (Auto) 26.4 % (13.4-35.0) 06/12/20 01:30 [place] % (Auto) 13.2 % (0.0-7.3) H 06/12/20 01:30 Eos % (Auto) 0.3 % (0.0-4.3) 06/12/20 01:30 Baso % (Auto) 0.4 % (0.0-1.8) 06/12/20 01:30 Lymph # (Auto) 1.3 K/mm3 (1.2-5.4) 06/12/20 01:30 [place] # (Auto) 0.6 K/mm3 (0.0-0.8) 06/12/20 01:30 Eos # (Auto) 0.0 K/mm3 (0.0-0.4) 06/12/20 01:30 Baso # (Auto) 0.0 K/mm3 (0.0-0.1) 06/12/20 01:30 Seg Neutrophils % 59.7 % (40.0-70.0) 06/12/20 01:30 Seg Neutrophils # 2.9 K/mm3 (1.8-7.7) 06/12/20 01:30 Sodium 136 mmol/L (137-145) L 06/12/20 16:48 Potassium 3.3 mmol/L (3.6-5.0) L 06/12/20 16:48 Chloride 94.9 mmol/L (98-107) L 06/12/20 16:48 Carbon Dioxide 29 mmol/L (22-30) 06/12/20 16:48 Anion Gap 15 mmol/L 06/12/20 16:48 BUN 10 mg/dL (7-17) 06/12/20 16:48 Creatinine 0.9 mg/dL (0.6-1.2) 06/12/20 16:48 Estimated GFR > 60 ml/min 06/12/20 16:48 BUN/Creatinine Ratio 11 % 06/12/20 16:48 Glucose 104 mg/dL (65-100) H 06/12/20 16:48 POC Glucose 105 mg/dL (70-105) 06/12/20 16:42 Calcium 9.4 mg/dL (8.4-10.2) 06/12/20 16:48 Magnesium 1.80 mg/dL (1.7-2.3) 06/12/20 04:53 Phenobarbital 7.6 ug/mL (15.0-40.0) L 06/12/20 01:30 Coronavirus (PCR) Negative (Negative) 06/12/20 08:58 [place]/IV: Voiding Method Incontinent IV Catheter Type [Right Peripheral IV Forearm] Active Medications - Current Medications Current Medications: Generic Name Dose Route Start Last Admin Trade Name Freq PRN Reason Stop Dose Admin Enoxaparin Sodium 40 mg 06/12/20 10:00 06/12/20 09:37 Enoxaparin SUB-Q 40 mg QDAY@1000 ARAVIND Administration Escitalopram Oxalate 5 mg 06/12/20 14:00 Lexapro PO QDAY ARAVIND Sodium Chloride 1,000 mls @ 125 mls/hr 06/12/20 04:45 06/12/20 05:18 Nacl 0.9% 1000 Ml IV 125 mls/hr DIRECT ARAVIND Administration Lorazepam 2 mg 06/12/20 04:40 Ativan IV Q4H PRN Agitation Phenobarbital 64.8 mg 06/12/20 10:00 06/12/20 09:36 Phenobarbital PO 64.8 mg Q12HR ARAVIND Administration Potassium Chloride 40 meq 06/12/20 18:42 K-Dur PO 06/12/20 18:43 ONCE ONE Risperidone 0.25 mg 06/12/20 14:00 06/12/20 17:30 Risperdal PO 0.25 mg BID ARAVIND Administration Trazodone HCl 50 mg 06/12/20 22:00 Desyrel PO QHS ARAVIND
[2020-06-12] MEDS: traZODone 50 MG TAB PO SCH (21:58)
[2020-06-13] MEDS ORDERED: SODIUM CHLORIDE 0.9% 1000 ML IV SOLN ONE (16:32)
--- NOTE | 2020-06-13 18:11 | Consultation ---
History of Present Illness Consult date: 06/13/20 Consult reason: tachycardia History of present illness: This patient is a 50-year-old woman who reports no prior cardiac history. She was admitted to this hospital following what was reported as a seizure episode at home. She states that she has a history of seizures but has not been compliant with her medications for many years. On presentation, she was placed on routine antiseizure protocol and seizure medications. While on the surveillance system monitor, she was noted with a 9 beat nonsustained ventricular tachycardia. The episode was apparently asymptomatic. Cardiology consultation was requested for further evaluation of the asymptomatic nonsustained ventricular tachycardia. It will be noted that she had hypokalemia, of 3.1 on the day of the episode. Magnesium level has been checked and is normal at 1.8. Twelve-lead EKG is normal sinus rhythm with nonspecific ST and T wave changes. Past History Past Medical History: hypertension, seizures Past Surgical History: No surgical history Social history: no significant social history Family history: no significant family history Medications and Allergies Allergies Allergy/AdvReac Type Severity Reaction Status Date / Time carisoprodol [From Soma] Allergy Hives Verified 02/20/20 04:11 divalproex sodium Allergy Rash Verified 02/20/20 04:11 [From Depakote] levetiracetam [From Keppra] Allergy Unknown Verified 06/12/20 01:11 Home Medications Medication Instructions Recorded Confirmed Last Taken Type PHENobarbitaL [Phenobarbital] 64.8 mg PO BID #60 tablet 02/20/20 06/12/20 Unknown Rx Escitalopram Oxalate [Lexapro] 5 mg PO QDAY #30 tablet 06/12/20 Unknown Rx PHENobarbitaL [PHENobarbital] 64.8 mg PO Q12HR #60 tablet 06/12/20 Unknown Rx risperiDONE [RisperDAL] 0.25 mg PO BID tablet 06/12/20 Unknown Rx risperiDONE [RisperDAL] 0.25 mg PO BID #60 tab 06/12/20 Unknown Rx traZODone [Desyrel] 50 mg PO QHS tablet 06/12/20 Unknown Rx traZODone [Desyrel] 50 mg PO QHS #30 tab 06/12/20 Unknown Rx Active Meds: Active Medications Enoxaparin Sodium (Enoxaparin) 40 mg SUB-Q QDAY@1000 ARAVIND Last Admin: 06/12/20 09:37 Dose: 40 mg Documented by: Escitalopram Oxalate (Lexapro) 5 mg PO QDAY [facility] Last Admin: 06/12/20 18:49 Dose: 5 mg Documented by: Sodium Chloride (Nacl 0.9% 1000 Ml) 1,000 mls @ 125 mls/hr IV DIRECT [facility] Last Admin: 06/12/20 22:00 Dose: 125 mls/hr Documented by: Lorazepam (Ativan) 2 mg IV Q4H PRN PRN Reason: Agitation Phenobarbital (Phenobarbital) 64.8 mg PO Q12HR [facility] Last Admin: 06/12/20 21:57 Dose: 64.8 mg Documented by: Risperidone (Risperdal) 0.25 mg PO BID [facility] Last Admin: 06/12/20 21:57 Dose: 0.25 mg Documented by: Trazodone HCl (Desyrel) 50 mg PO QHS [facility] Last Admin: 06/12/20 21:58 Dose: 50 mg Documented by: Review of Systems Cardiovascular: no chest pain, no orthopnea, no palpitations, no rapid/irregular heart beat, no edema, no syncope, no lightheadedness, no shortness of breath Physical Examination Vital Signs Pulse Resp Pulse Ox 122 H 28 H 100 06/12/20 01:12 06/12/20 01:12 06/12/20 01:12 General appearance: no acute distress HEENT: Positive: PERRL Neck: Positive: neck supple Cardiac: Positive: Reg Rate and Rhythm Lungs: Positive: Decreased Breath Sounds Neuro: Positive: Grossly Intact Abdomen: Positive: Soft Female genitourinary: deferred Skin: Positive: Clear Extremities: Absent: edema Results 06/12/20 07:53 06/14/20 05:12 EKG interpretations - Telemetry EKG Rhythm: Sinus Rhythm Assessment and Plan - Patient Problems (1) Nonsustained ventricular tachycardia Current Visit: Yes Status: Acute Plan to address problem: Asymptomatic nonsustained ventricular tachycardia in the setting of hypokalemia and recent seizures. We will add a beta-noah to the patient's regimen, and order an echocardiogram for left ventricular function assessment. Further cardiac evaluation and management will depend on clinical course.
--- NOTE | 2020-06-13 19:09 | Progress Note ---
<LAURASTEVEIrlanda - Last Filed: 06/13/20 19:05> Assessment and Plan Assessment and plan: 1) Hypokalemia Current Visit: Yes Status: Acute Plan to address problem: Potassium on admit was 3.1 which was repleted 06/12 potassium 2.9, repleted 06/12 repeat potassium 3.3, repleted Trend BMP Patient had a 9 beat run of V. tach therefore cardiology was consulted - f/u TSH, mag and K from06/13 - Cardiology ordered an echo (2) Hyponatremia Current Visit: Yes Status: Acute Plan to address problem: Sodium 124 on admission, was 144 last admission S/p normal saline bolus in the ED IV hydration with normal saline A.m. BMP shows a sodium of 130 Trend BMP (3) Hypochloremia Current Visit: Yes Status: Acute Plan to address problem: Admit chloride 74 S/p normal saline in the ED and IV hydration with normal saline A.m. chloride 80.6 Trend BMP (4) Seizure Current Visit: Yes Status: Chronic Plan to address problem: Likely 2/2 to noncompliance with anti seizure medicine Continue safety, fall and seizure precaution Resume home anti-seizure medicine Strongly encourage medical compliance Neurology consulted We will obtain a.m. Depakote level and adjust dose as necessary (5) Bipolar Current Visit: Yes Status: Chronic Plan to address problem: Psych consult, appreciate recommendations Psych started: Risperidone 0.25mg po BID, Lexapro 5mg po daily, trazodone 50mg po qhs -Does not recommend inpatient hospitalization at this time. They recommended outpatient follow-up for psych care within 1 to 2 weeks of discharge. (6) DVT prophylaxis Current Visit: Yes Status: Acute Plan to address problem: SCDs to bilateral lower extremities while in bed Lovenox subcu History Interval history: This 50-year-old female with seizure, chronic back pain, PTSD, depression and noncompliance presents to the emergency department on 06/12 for a seizure at home. The patient was given 5 mg of Versed IM by EMS prior to arrival. Work-up in the emergency department showed hyponatremia at 124 and hypokalemia at 3.1. A CT head obtained on 06/12 shows no acute abnormality. Her DC was held d/t persistent electrolyte imbalances, 9 beat run of vtach and neuro request to observe for 24 hours and adjust meds accordingly. This morning pt is withdrawn. Stat mag, K and TSH ordered. Cardiology plans to obtain an echo wich were ordered. No labs for [employer] d/t [employer] downtime. 06/12: hypokalemic to 2.9 and was given p.o. potassium and on repeat it is 3.3 which is again repleted. A mental health consult was obtained who started the patient on bipolar regimen and does not recommend inpatient hospitalization at this time. They recommended outpatient follow-up for psych care within 1 to 2 weeks of discharge. COVID-19 PCR was negative. Per neurology we will check her Depakote level in the a.m. and if it is decreased we will adjust the doses as needed. Patient had a 9 beat run of V. tach and cardiology was consulted. Her discharge was held due to continued electrolyte derangement, per neurology to observe the patient for 24 hours for any additional seizure activities and for this new asymptomatic V. tach. Patient also does not have a place to go after discharge. CM has been consulted and made aware of the situation. Hospitalist Physical - Physical exam Narrative exam: General appearance: Present: no acute distress - EENT Eyes: Present: PERRL, EOM intact ENT: hearing intact, clear oral mucosa - Neck Neck: Present: supple, normal ROM - Respiratory Respiratory effort: normal Respiratory: bilateral: CTA - Cardiovascular Rhythm: regular Heart Sounds: Present: S1 & S2. Absent: systolic murmur, diastolic murmur - Extremities Extremities: no ischemia, pulses intact, pulses symmetrical, No edema, normal temperature, normal color, Full ROM Peripheral Pulses: within normal limits - Abdominal General gastrointestinal: Present: soft, non-tender, non-distended, normal bowel sounds - Integumentary Integumentary: Present: warm, dry - Musculoskeletal Musculoskeletal: strength equal bilaterally - Psychiatric Psychiatric: cooperative, withdrawn - Neurologic Neurologic: CNII-XII intact, no focal deficits, moves all extremities - Constitutional Vitals: Temp Pulse Resp BP Pulse Ox 99.1 F 102 H 16 121/57 99 06/12/20 22:23 06/12/20 22:23 06/12/20 22:23 06/12/20 22:23 06/12/20 22:23 General appearance: Present: no acute distress Results - Labs CBC & Chem 7: 06/12/20 07:53 06/12/20 16:48 Labs: Laboratory Last Values WBC 5.0 K/mm3 (4.5-11.0) 06/12/20 07:53 RBC 3.48 M/mm3 (3.65-5.03) L 06/12/20 07:53 Hgb 11.2 gm/dl (10.1-14.3) 06/12/20 07:53 Hct 31.5 % (30.3-42.9) 06/12/20 07:53 MCV 90 fl (79-97) 06/12/20 07:53 MCH 32 pg (28-32) 06/12/20 07:53 MCHC 36 % (30-34) H 06/12/20 07:53 RDW 14.6 % (13.2-15.2) 06/12/20 07:53 Plt Count 179 K/mm3 (140-440) 06/12/20 07:53 Lymph % (Auto) 26.4 % (13.4-35.0) 06/12/20 01:30 Dare % (Auto) 13.2 % (0.0-7.3) H 06/12/20 01:30 Eos % (Auto) 0.3 % (0.0-4.3) 06/12/20 01:30 Baso % (Auto) 0.4 % (0.0-1.8) 06/12/20 01:30 Lymph # (Auto) 1.3 K/mm3 (1.2-5.4) 06/12/20 01:30 Dare # (Auto) 0.6 K/mm3 (0.0-0.8) 06/12/20 01:30 Eos # (Auto) 0.0 K/mm3 (0.0-0.4) 06/12/20 01:30 Baso # (Auto) 0.0 K/mm3 (0.0-0.1) 06/12/20 01:30 Seg Neutrophils % 59.7 % (40.0-70.0) 06/12/20 01:30 Seg Neutrophils # 2.9 K/mm3 (1.8-7.7) 06/12/20 01:30 Sodium 136 mmol/L (137-145) L 06/12/20 16:48 Potassium 3.3 mmol/L (3.6-5.0) L 06/12/20 16:48 Chloride 94.9 mmol/L (98-107) L 06/12/20 16:48 Carbon Dioxide 29 mmol/L (22-30) 06/12/20 16:48 Anion Gap 15 mmol/L 06/12/20 16:48 BUN 10 mg/dL (7-17) 06/12/20 16:48 Creatinine 0.9 mg/dL (0.6-1.2) 06/12/20 16:48 Estimated GFR > 60 ml/min 06/12/20 16:48 BUN/Creatinine Ratio 11 % 06/12/20 16:48 Glucose 104 mg/dL (65-100) H 06/12/20 16:48 POC Glucose 105 mg/dL (70-105) 06/12/20 16:42 Calcium 9.4 mg/dL (8.4-10.2) 06/12/20 16:48 Magnesium 1.80 mg/dL (1.7-2.3) 06/12/20 04:53 Phenobarbital 7.6 ug/mL (15.0-40.0) L 06/12/20 01:30 Coronavirus (PCR) Negative (Negative) 06/12/20 08:58 Plaza/IV: Voiding Method Incontinent IV Catheter Type [Right Peripheral IV Forearm] Active Medications - Current Medications Current Medications: Generic Name Dose Route Start Last Admin Trade Name Freq PRN Reason Stop Dose Admin Enoxaparin Sodium 40 mg 06/12/20 10:00 06/12/20 09:37 Enoxaparin SUB-Q 40 mg QDAY@1000 ARAVIND Administration Escitalopram Oxalate 5 mg 06/12/20 14:00 06/12/20 18:49 Lexapro PO 5 mg QDAY ARAVIND Administration Sodium Chloride 1,000 mls @ 125 mls/hr 06/12/20 04:45 06/12/20 22:00 Nacl 0.9% 1000 Ml IV 125 mls/hr DIRECT ARAVIND Administration Lorazepam 2 mg 06/12/20 04:40 Ativan IV Q4H PRN Agitation Phenobarbital 64.8 mg 06/12/20 10:00 06/12/20 21:57 Phenobarbital PO 64.8 mg Q12HR ARAVIND Administration Risperidone 0.25 mg 06/12/20 14:00 06/12/20 21:57 Risperdal PO 0.25 mg BID ARAVIND Administration Trazodone HCl 50 mg 06/12/20 22:00 06/12/20 21:58 Desyrel PO 50 mg QHS ARAVIND Administration <ADRIAN SOTO - Last Filed: 06/15/20 07:23> Assessment and Plan Assessment and plan: I saw and evaluated the patient. I agree with the findings and the plan of care as documented in the Nurse Practitioner's~note, with the following corrections and additions. Hospitalist Physical - Constitutional Vitals: Temp Pulse Resp BP Pulse Ox 98.5 F 86 16 114/70 100 06/15/20 04:26 06/15/20 04:26 06/15/20 04:26 06/15/20 04:26 06/15/20 04:26 Results - Labs CBC & Chem 7: 06/12/20 07:53 06/14/20 05:12 Labs: Laboratory Last Values WBC 5.0 K/mm3 (4.5-11.0) 06/12/20 07:53 RBC 3.48 M/mm3 (3.65-5.03) L 06/12/20 07:53 Hgb 11.2 gm/dl (10.1-14.3) 06/12/20 07:53 Hct 31.5 % (30.3-42.9) 06/12/20 07:53 MCV 90 fl (79-97) 06/12/20 07:53 MCH 32 pg (28-32) 06/12/20 07:53 MCHC 36 % (30-34) H 06/12/20 07:53 RDW 14.6 % (13.2-15.2) 06/12/20 07:53 Plt Count 179 K/mm3 (140-440) 06/12/20 07:53 Lymph % (Auto) 26.4 % (13.4-35.0) 06/12/20 01:30 Dare % (Auto) 13.2 % (0.0-7.3) H 06/12/20 01:30 Eos % (Auto) 0.3 % (0.0-4.3) 06/12/20 01:30 Baso % (Auto) 0.4 % (0.0-1.8) 06/12/20 01:30 Lymph # (Auto) 1.3 K/mm3 (1.2-5.4) 06/12/20 01:30 Dare # (Auto) 0.6 K/mm3 (0.0-0.8) 06/12/20 01:30 Eos # (Auto) 0.0 K/mm3 (0.0-0.4) 06/12/20 01:30 Baso # (Auto) 0.0 K/mm3 (0.0-0.1) 06/12/20 01:30 Seg Neutrophils % 59.7 % (40.0-70.0) 06/12/20 01:30 Seg Neutrophils # 2.9 K/mm3 (1.8-7.7) 06/12/20 01:30 Sodium 142 mmol/L (137-145) 06/14/20 05:12 Potassium 3.5 mmol/L (3.6-5.0) L 06/14/20 05:12 Chloride 104.5 mmol/L (98-107) 06/14/20 05:12 Carbon Dioxide 28 mmol/L (22-30) 06/14/20 05:12 Anion Gap 13 mmol/L 06/14/20 05:12 BUN 3 mg/dL (7-17) L 06/14/20 05:12 Creatinine 0.6 mg/dL (0.6-1.2) 06/14/20 05:12 Estimated GFR > 60 ml/min 06/14/20 05:12 BUN/Creatinine Ratio 5 % 06/14/20 05:12 Glucose 91 mg/dL (65-100) 06/14/20 05:12 POC Glucose 105 mg/dL (70-105) 06/12/20 16:42 Calcium 8.5 mg/dL (8.4-10.2) 06/14/20 05:12 Magnesium 1.80 mg/dL (1.7-2.3) 06/12/20 04:53 Phenobarbital 7.6 ug/mL (15.0-40.0) L 06/12/20 01:30 Coronavirus (PCR) Negative (Negative) 06/12/20 08:58 - Diagnostic Impressions Diagnostic Impressions: Echocardiogram 06/13/20 00:00 Transthoracic Echocardiogram Indication: PSVT BP: 131/80 HR: 89 Conclusions *The left ventricular chamber size is mildly dilated. *Global left ventricular systolic function is moderate to severely decreased. *The estimated ejection fraction is 30-35%. *There is mild mitral regurgitation. *There is trace tricuspid regurgitation. *The inferior vena cava is dilated. Findings Left Ventricle: The left ventricular chamber size is mildly dilated. Mild concentric left ventricular hypertrophy is observed. Global left ventricular systolic function is moderate to severely decreased. The estimated ejection fraction is 30-35%. Left Atrium: The left atrial chamber size is normal. Right Ventricle: The right ventricular cavity size is normal. Right Atrium: The right atrial cavity size is normal. Aortic Valve: The aortic valve is trileaflet. The aortic valve leaflets are mildly thickened. There is no evidence of aortic regurgitation. There is no evidence of aortic stenosis. Mitral Valve: The mitral valve leaflets are mildly thickened. There is mild mitral regurgitation. There is no evidence of mitral stenosis. Tricuspid Valve: There is trace tricuspid regurgitation. No pulmonary hypertension is noted. Pulmonic Valve: There is trace pulmonic regurgitation. Pericardium: There is no pericardial effusion. Aorta: There is no dilatation of the ascending aorta. There is no dilatation of the aortic root. Venous: The inferior vena cava is dilated. Measurements Chambers 2D Name Value Normal Range IVSd (2D) 0.91 cm (0.6 - 1.1) LVPWd (2D) 0.94 cm (0.6 - 1.1) LVIDd (2D) 4.28 cm (3.7 - 5.6) LVIDs (2D) 3.42 cm (2 - 3.8) LV FS (2D) 19.99 % - EF Teichholz (2D) 41.25 % - Ao root diameter (2D) 2.93 cm (2 - 3.7) Volumes/Mass Name Value Normal Range LA ESV SP 4CH (A/L) 14 ml - LA ESV SP 2CH (A/L) 18.4 ml - LA ESV BP (A/L) 16.6 ml - LA ESV BP (A/L) index 11.86 ml/m2 - LA ESV SP 4CH (MOD) 12.15 ml - LA ESV SP 2CH (MOD) 17.95 ml - LA ESV BP (MOD) 15.18 ml - LA ESV BP (MOD) index 10.84 ml/m2 - Diastolic/Systolic Function Name Value Normal Range MV E-wave Vmax 0.56 m/sec - MV deceleration time 145.94 msec - MV A-wave Vmax 0.71 m/sec - MV E:A ratio 0.79 ratio - Aortic Valve Name Value Normal Range AV Vmax 1.01 m/sec - AV VTI 18.42 cm - AV peak gradient 4.12 mmHg - AV mean gradient 2.61 mmHg - LVOT diameter 2.05 cm - LVOT Vmax 0.84 m/sec - LVOT VTI 14.23 cm - LVOT peak gradient 2.82 mmHg - LVOT mean gradient 1.39 mmHg - SV LVOT 46.81 ml - CAMILLE (continuity Vmax) 2.72 cm2 - CAMILLE (continuity VTI) 2.54 cm2 - Tricuspid Valve Name Value Normal Range IVC diameter 2.04 cm (1.2 - 2.3) Pulmonic Valve/Qp:Qs Name Value Normal Range PV acceleration time 98.95 msec - Plaza/IV: Voiding Method Toilet IV Catheter Type [Right Peripheral IV Forearm] Active Medications - Current Medications Current Medications: Generic Name Dose Route Start Last Admin Trade Name Freq PRN Reason Stop Dose Admin Aspirin 81 mg 06/14/20 15:00 06/14/20 17:30 Halfprin Ec PO 81 mg QDAY ARAVIND Administration Carvedilol 6.25 mg 06/14/20 15:00 06/14/20 21:26 Coreg PO 6.25 mg BID ARAVIND Administration Enoxaparin Sodium 40 mg 06/12/20 10:00 06/14/20 10:38 Enoxaparin SUB-Q 40 mg QDAY@1000 ARAVIND Administration Escitalopram Oxalate 5 mg 06/12/20 14:00 06/14/20 10:38 Lexapro PO 5 mg QDAY ARAVIND Administration Lisinopril 2.5 mg 06/14/20 15:00 06/14/20 17:31 Zestril PO 2.5 mg QDAY ARAVIND Administration Lorazepam 2 mg 06/12/20 04:40 Ativan IV Q4H PRN Agitation Phenobarbital 64.8 mg 06/14/20 22:00 06/14/20 21:26 Phenobarbital PO 64.8 mg BID ARAVIND Administration Risperidone 0.25 mg 06/12/20 14:00 06/14/20 21:26 Risperdal PO 0.25 mg BID ARAVIND Administration Spironolactone 25 mg 06/14/20 15:00 06/14/20 17:30 Aldactone PO 25 mg QDAY ARAVIND Administration Trazodone HCl 50 mg 06/12/20 22:00 06/14/20 21:26 Desyrel PO 50 mg QHS ARAVIND Administration Nutrition/Malnutrition Assess - Dietary Evaluation Nutrition/Malnutrition Findings: Nutrition Notes Start: 06/14/20 11:31 Freq: Status: Active Protocol: Document 06/14/20 11:33 GUME (Rec: 06/14/20 11:48 GUME [id number]) Co-Sign 06/14/20 11:33 LM Nutrition Notes Need for Assessment generated from: Low BMI Initial or Follow up Assessment Other Pertinent Diagnosis seizure disorder, hypokalemia, hyponatremia, hx of medication noncompliance Current Diet Cardiac Labs/Tests K 3.5 BUN 3 Pertinent Medications NS 125 ml/hr Height 5 ft 4 in Weight 41.4 kg [place] Body Weight (kg) 54.54 BMI 15.6 Intake Prior to Admission Poor Weight change and time frame 13% wt loss in 3 months (pt weighed 47.627kg on last adm) Weight Status Underweight Subjective/Other Information Screened for low BMI. 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 Pt states "I'm a horrible person, I don't deserve any of this." Pt on antidepressant medication. 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 No Is Patient Ambulatory and/or Out of Bed Yes REE-([place]-St. Jeor-ambulatory/OOB) [ 1318.200 [id number]] Kcal/Kg value to use for calculation 43 Approximate Energy Requirements Using 1780 kcal/Kg Calculation Used for Recommendations Kcal/kg Additional Notes Pro: 50-62 g (1.2-1.5 g/kg) Fluid: 1 ml/kcal Nutrition Intervention Change Diet Order: Continue Cardiac Goal #1 Meet at least 80% energy and protein needs Goal #2 Wt gain/maintenance Anticipated Discharge Needs: Cardiac diet Follow-Up By: 06/16/20 Additional Comments F/U for intakes and plan of care
[2020-06-13] MEDS: ESCITALOPRAM 10 MG/10 ML ORAL LIQD PO SCH (19:41)
[2020-06-13] MEDS: PHENobarbital 32.4 MG TAB PO SCH ×2 (19:41→21:27)
[2020-06-13] MEDS: ENOXAPARIN 40 MG/0.4 ML INJ SUB-Q SCH (19:41)
[2020-06-13] MEDS: risperiDONE 0.25 MG TAB PO SCH ×2 (19:41→21:27)
[2020-06-13] MEDS: traZODone 50 MG TAB PO SCH (21:27)
[2020-06-14] MEDS: SODIUM CHLORIDE 0.9% 1000 ML 1,000 ML IV SCH (03:42)
[2020-06-14 06:05] LABS: Blood Urea Nitrogen 3 mg/dL (7-17); Calcium 8.5 mg/dL (8.4-10.2); Hemolysis Index 2
[2020-06-14 06:06] LABS: BUN/Creatinine Ratio 5
[2020-06-14] MEDS ORDERED: POTASSIUM CHLORIDE ER 20 MEQ TAB PO ONE (08:00)
--- NOTE | 2020-06-14 10:23 | Discharge Summary ---
<STEVE SANCHEZ - Last Filed: 06/15/20 13:46> Providers - Providers Date of Admission: 06/12/20 04:07 Attending physician: ADRIAN SOTO MD 06/12/20 06:30 Consult to Physician [CONS] Routine Comment: Consulting Provider: AMANDEEP REDDY Physician Instructions: Reason For Exam: seizure 06/12/20 09:12 Consult to Case Management [CONS] Routine Services Needed at Discharge: Chemical Engraver Notified:: cm notified Consult to Mental Health [CONS] Routine Reason For Exam: depression, ptsd 06/12/20 18:38 Consult to Physician [CONS] Routine Comment: Consulting Provider: WONG CROWDER Physician Instructions: Reason For Exam: 9 beat vtach Primary care physician: STAFF ANESTHESIOLOGIST Hospitalization Condition: Stable Hospital course: This 50-year-old female with seizure, chronic back pain, PTSD, depression and noncompliance presents to the emergency department on 06/12 for a seizure at home. The patient was given 5 mg of Versed IM by EMS prior to arrival. Work-up in the emergency department showed hyponatremia at 124 and hypokalemia at 3.1. A CT head obtained on 06/12 shows no acute abnormality. Her DC was held d/t persistent electrolyte imbalances, 9 beat run of vtach and neuro request to observe for 24 hours and adjust meds accordingly. On repeat K was 3.3 which is again repleted. A mental health consult was obtained who started the patient on bipolar regimen and does not recommend inpatient hospitalization at this time. They recommended outpatient follow-up for psych care within 1 to 2 weeks of discharge. COVID-19 PCR was negative. Per neurology we checked her Depakote level in the a.m. and it was low, her meds were adjusted doses as needed. Patient had a 9 beat run of V. tach and cardiology was consulted who obtained a TSH which is 7.6 and repeat K/Mg. Her Mg was within normal limits and her K was low but repleted again. Her discharge was held due to continued electrolyte derangement, per neurology to observe the patient for 24 hours for any additional seizure activities and for this new asymptomatic V. tach. Patient also does not have a place to go after discharge. CM has been consulted and made aware of the situation. She will need to follow up with her PCP, neurology,cardiology and psychiatrist out patient within 1 to 2 weeks of discharge. No driving until cleared by PCP, DMV services or neurology. Patient has been given resources for continued care by CM. Patient's echocardiogram showed a dilated cardiomyopathy with left ventricular ejection fraction 30 to 35%. She obtained a stress test today which showed normal coronary perfusion. Cardiology recommends treatment with beta-blockers, afterload agents, aspirin and spironolactone. (1) Hypokalemia Current Visit: Yes Status: Resolved Plan to address problem: Potassium on admit was 3.1 which was repleted 06/12 potassium 2.9, repleted 06/12 repeat potassium 3.3, repleted 06/14 K 3.5, repleted 06/15 potassium 3.6 (2) Hyponatremia Current Visit: Yes Status: Resolved Plan to address problem: Sodium 124 on admission, was 144 last admission S/p normal saline bolus in the ED and IV hydration with normal saline 06/12 A.m. BMP shows a sodium of 130 06/12 Na 136, 06/14 Na 142, 06/15 138 (3) Hypochloremia Current Visit: Yes Status: Resolved Plan to address problem: Admit chloride 74 S/p normal saline in the ED and IV hydration with normal saline 06/12 A.m. chloride 80.6, 06/12 Cl 94.9, 06/14 104.5, 06/15 100.7 (4) Seizure Current Visit: Yes Status: Chronic Plan to address problem: Likely 2/2 to noncompliance with anti seizure medicine Continue safety, fall and seizure precaution Resume home anti-seizure medicine Strongly encourage medical compliance Neurology consulted 05/19 phenobarbital level 7.6, 06/15 phenobarbital level 19.1 (5) Bipolar Current Visit: Yes Status: Chronic Plan to address problem: Psych consult, appreciate recommendations Psych started: Risperidone 0.25mg po BID, Lexapro 5mg po daily, trazodone 50mg po qhs Does not recommend inpatient hospitalization at this time. They recommended outpatient follow-up for psych care within 1 to 2 weeks of discharge. (5) Dilated Cardiomyopathy Current Visit: Yes Status: chronic Plan to address problem: On 06/12 patient had a 9 beat run of V. tach therefore cardiology was consulted 06/12 mag 1.8, TSH 0.717 06/13 TTE showed mildly dilated LV, global left ventricular systolic function is moderate to severely decreased, estimated EF is 30 to 35%, mild MR, trace TR, inferior vena cava is dilated 06/15 thallium stress test showed EF of 56% and normal myocardial perfusion Follow-up with cardiology outpatient within 1 to 2 weeks of discharge Disposition: DC-01 TO HOME OR SELFCARE Time spent for discharge: 35 Core Measure Documentation - Palliative Care Palliative Care/ Comfort Measures: Not Applicable - Core Measures Any of the following diagnoses?: none Exam - Constitutional Vitals: Temp Pulse Resp BP Pulse Ox 99.5 F 114 H 18 131/80 99 06/14/20 08:45 06/14/20 08:45 06/14/20 08:45 06/14/20 08:45 06/14/20 08:45 General appearance: Present: no acute distress - EENT Eyes: Present: PERRL, EOM intact ENT: hearing intact, poor dentition - Neck Neck: Present: supple, normal ROM - Respiratory Respiratory effort: normal Respiratory: bilateral: CTA - Cardiovascular Rhythm: regular Heart Sounds: Present: S1 & S2. Absent: systolic murmur, diastolic murmur - Extremities Extremities: no ischemia, pulses intact, pulses symmetrical, No edema, normal temperature, normal color, Full ROM Peripheral Pulses: within normal limits - Abdominal General gastrointestinal: Present: soft, non-tender, non-distended, normal bowel sounds - Integumentary Integumentary: Present: clear, warm, dry - Musculoskeletal Musculoskeletal: strength equal bilaterally - Psychiatric Psychiatric: depressed - Neurologic Neurologic: CNII-XII intact, no focal deficits, moves all extremities Plan Activity: advance as tolerated, no driving until cleared by PCP Diet: regular Special Instructions: record daily BP diary, other (Record you heart rate before taking your carvedilol and do not take it if heart rate is less than 60) Additional Instructions: Follow-up with your primary care physician, cardiology, neurology and a psychiatrist outpatient wiin 1-2 wks. You have been provided with resources. Present to nearest emergency department contact primary care physician if you experience worsening symptoms. [facility] CLARISSA GUTIERREZ MD [Staff Physician] - 7 Days PRIMARY MD ARIANE [Primary Care Provider] - 3-5 Days BRENT ALTAMIRANO MD [Staff Physician] - 7 Days Prescriptions: traZODone [Desyrel] 50 mg PO QHS #30 tab Spironolactone [Aldactone] 25 mg PO QDAY #30 tablet carvediloL [Coreg] 6.25 mg PO BID #60 tablet Aspirin EC [Halfprin EC] 81 mg PO QDAY #30 tablet Escitalopram Oxalate [Lexapro] 5 mg PO QDAY #30 tablet PHENobarbitaL [PHENobarbital] 64.8 mg PO Q12HR #60 tablet PHENobarbitaL [PHENobarbital] 64.8 mg PO BID #60 tablet risperiDONE [RisperDAL] 0.25 mg PO BID #60 tab lisinopriL [Zestril TAB] 2.5 mg PO QDAY #30 tablet <ADRIAN SOTO - Last Filed: 06/16/20 17:43> Providers - Providers Date of Admission: 06/15/20 09:12 Attending physician: ADRIAN SOTO MD 06/12/20 06:30 Consult to Physician [CONS] Routine Comment: Consulting Provider: AMANDEEP REDDY Physician Instructions: Reason For Exam: seizure 06/12/20 09:12 Consult to Case Management [CONS] Routine Services Needed at Discharge: Chemical Engraver Notified:: cm notified Consult to Mental Health [CONS] Routine Reason For Exam: depression, ptsd 06/12/20 18:38 Consult to Physician [CONS] Routine Comment: Consulting Provider: WONG CROWDER Physician Instructions: Reason For Exam: 9 beat vtach Primary care physician: STAFF ANESTHESIOLOGIST Hospitalization Hospital course: I saw and evaluated the patient. I agree with the findings and the plan of care as documented in the Nurse Practitioner's~note, with the following corrections and additions. Exam - Constitutional Vitals: Temp Pulse Resp BP Pulse Ox 97.4 F L 102 H 18 125/83 100 06/16/20 11:44 06/16/20 11:44 06/16/20 11:44 06/16/20 11:44 06/16/20 11:44
[2020-06-14] MEDS: PHENobarbital 32.4 MG TAB PO SCH ×2 (10:38→21:26)
[2020-06-14] MEDS: ESCITALOPRAM 10 MG/10 ML ORAL LIQD PO SCH (10:38)
[2020-06-14] MEDS: risperiDONE 0.25 MG TAB PO SCH ×2 (10:38→21:26)
[2020-06-14] MEDS: ENOXAPARIN 40 MG/0.4 ML INJ SUB-Q SCH (10:38)
[2020-06-14] MEDS ORDERED: POTASSIUM CHLORIDE ER 20 MEQ TAB PO NR (11:00)
--- NOTE | 2020-06-14 11:19 | Progress Note ---
Assessment and Plan Transient NSVT likely s/t hypokalemia, potassium of 2.9 Recurrent Seizure -reason for admission Replete potassium. Echocardiogram has been completed, results are pending. Subjective Date of service: 06/14/20 Interval history: Patient is resting in bed comfortably. She denies palpitations, unusual shortness of breath and chest pain. No events reported on telemetry overnight. Objective Vital Signs Temp Pulse Pulse Resp BP Pulse Ox 06/14/20 08:45 99.5 F 114 H 18 131/80 99 06/14/20 03:40 98.9 F 115 H 18 115/77 100 06/13/20 22:53 98.8 F 109 H 18 104/67 100 06/13/20 20:56 105 H 16 98 06/13/20 19:39 102 H 06/13/20 19:15 99.2 F 107 H 14 104/59 98 06/13/20 15:13 99.0 F 106 H 18 124/74 99 - Physical Examination General: No Apparent Distress HEENT: Positive: PERRL Neck: Positive: trachea midline Cardiac: Positive: Reg Rate and Rhythm Lungs: Positive: Decreased Breath Sounds Neuro: Positive: Grossly Intact Extremities: Absent: edema - Labs and Meds Comprehensive Metabolic Panel 06/14/20 Range/Units 05:12 Sodium 142 (137-145) mmol/L Potassium 3.5 L (3.6-5.0) mmol/L Chloride 104.5 (98-107) mmol/L Carbon Dioxide 28 (22-30) mmol/L BUN 3 L (7-17) mg/dL Creatinine 0.6 (0.6-1.2) mg/dL Glucose 91 (65-100) mg/dL Calcium 8.5 (8.4-10.2) mg/dL
--- NOTE | 2020-06-14 11:40 | Progress Note ---
Assessment and Plan 50 yo female with seizure d/o since childhood presenting w/ noncompliance with phenobarbital secondary to financial resources. 1. Seizure d/o - phenobarbital 64.8 mg bid (pt's home regimen). 2. Therapeutic Drug Monitoring - 7.6 phb level noted. 3. Right-sided numbness - ?postictal phenomenon; consider MRI Brain w/ wo contrast if it does not resolve in the next 12 hours. 4. Patient will need followup with Neurology in 1 week. No driving and no self-climb/swim/cook or supervisory role w/o neurology clearance. Gerson Aquino MD Neurology Subjective Date of service: 06/14/20 Principal diagnosis: Seizures Interval history: States she is not doing well today. No clinical seizure activity? Objective - Exam Narrative Exam: Gen: nad, well-nourished; Head: normocephalic; Eyes: no gaze deviation; no ptosis; ENT: normal vocalization; CVS: warm and well-perfused; Pulm: no respiratory distress;; GI: non-distended; Ext: no cyanosis or edema at distal extremities; Skin: no acute rash at distal extremities; Heme: no pathologic ecchymosis at distal extremities; Neuro: alert, oriented to self, not month; +year; CN 2 - PERRL, visual sharma intact, CN 3, 4, 6 - EOMI, CN 5 - facial sensation symmetric to light touch, CN 7 - facial movement symmetric, CN 8 - hearing grossly intact, CN 9, 10 - uvula midline, CN 11 - shoulder movement symmetric, CN 12 - tongue midline; Motor - at least 4-/5 in all exts; Sensory - light touch decreased at right arm/leg, Cerebellar - fnf (slight difficulty w/ LUE) / hts; Gait - deferred secondary to fall risk; - Vital Sign Vital Signs - 12hr 06/14/20 06/14/20 06/14/20 03:40 08:45 10:00 Temperature 98.9 F 99.5 F Pulse Rate 115 H 114 H 104 H Respiratory 18 18 Rate Blood Pressure 115/77 131/80 O2 Sat by Pulse 100 99 Oximetry - Laboratory Findings CBC and BMP: 06/12/20 07:53 06/14/20 05:12 Abnormal Lab Findings: Abnormal Labs 06/12/20 06/12/20 06/12/20 01:30 01:30 01:30 RBC MCHC Hall % (Auto) 13.2 H Sodium 124 L Potassium 3.1 L Chloride 74.0 L Carbon Dioxide BUN Glucose 108 H Phenobarbital 7.6 L 06/12/20 06/12/20 06/12/20 04:53 04:53 07:53 RBC 3.58 L 3.48 L MCHC 35 H 36 H Hall % (Auto) Sodium 128 L Potassium 3.0 L Chloride 83.0 L Carbon Dioxide BUN Glucose Phenobarbital 06/12/20 06/12/20 06/14/20 07:53 16:48 05:12 RBC MCHC Hall % (Auto) Sodium 130 L 136 L Potassium 2.9 L* 3.3 L 3.5 L Chloride 85.6 L 94.9 L Carbon Dioxide 33 H BUN 3 L Glucose 104 H Phenobarbital
[2020-06-14] MEDS ORDERED: PHENobarbital 32.4 MG TAB PO SCH (12:00)
--- NOTE | 2020-06-14 13:28 | Consultation ---
History of Present Illness - Reason for Consult Consult date: 06/14/20 Reason for consult: MHE - History of Present Psychiatric Illness Rochelle Colunga is a 50y/o female patient who presented to the ER for seizure activity at home and noncompliance with phenobarbital. She was seen earlier in the week. Psych was reconsulted to see the patient. During my interview with the patient she is lying down. She is a/o x 3. The patient states to me "I've let so many people down." She then says "I've hurt them." She says "I'm just trying to make things right." When asked was she suicidal, the patient says "no, I'm not suicidal. This is not about me." When asked was she going to hurt others or thinking about hurting other people, she replies "no, I don't want to hurt anybody, I've hurt them enough." The patient denies hallucinations of any kind. She says she has a historoy of PTSD, unipolar and psychosis. She says, "it's not my psych illness. I just let too many people down." When asking the patient did she feel safe going home, "she says I don't have a home. I'm homeless." She says "but it's not about that. I just have hurt people in my life, even my boyfriend." PAST PSYCHIATRIC HISTORY: Diagnoses: PTSD, Unipolar, Psychosis Suicide attempts or Self-harm behavior: Denies Prior psychiatric hospitalizations: Substance Abuse history: Denies Previous psychiatric medications tried: lexapro and geodon Outpatient treatment: Denies PAST MEDICAL HISTORY: None reported Family Psychiatric History: None reported or documented SOCIAL HISTORY Marital Status: Single Living Arrangements: In extended stay Employment Status: Access to guns/weapons: Denies Education: Some college History of Abuse: None reported Legal History: None reported REVIEW OF SYSTEMS Constitutional: Negative for weight loss ENT: Negative for stridor Respiratory: Negative for cough or hemoptysis All other systems reviewed and are negative MENTAL STATUS EXAMINATION General Appearance: Dressed appropriately Behavior: good eye contact, cooperative Cooperation: Participating/engaged Psychomotor Behavior: Psychomotor normal Mood: "upset right now" Affect and affective range: congruent with mood Thought Process: goal oriented Thought Content: within reality Speech: Normal rate, volume and rhythm Suicidal Ideation: denies SI Homicidal Ideation: Denies HI Hallucinations: Denies Delusions: possibly paranoid Impulse Control: Limited Insight and Judgment: Limited insight and judgment Memory: Normal Attention: Normal Orientation: Alert, oriented Assessment and Plan Bipolar Disorder TREATMENT Scripts left at counter at last consult Risperidone 0.25mg po BID Lexapro 5mg po daily Trazodone 50mg po qhs Sitter: Defer to primary Medical: [facility] Disposition: Do not recommend acute inpatient psychiatric treatment at this time. The patient can be treated on an outpatient basis. The patient understands that if thoughts of self harm arise or thoughts to harm others she should seek immediate assistance including, but not limited to the crisis hotline, 911/ER. The county assessor to give the patient resources for outpatient psychiatry, programs that offer assistance with medication, and cognitive behavior therapy The county assessor to further discuss safety plan with the patient The patient to follow up with outpatient psychiatry in 7 to 14 days upon discharge Will sign off. Thank you for this consult. Medications and Allergies Allergies Allergy/AdvReac Type Severity Reaction Status Date / Time carisoprodol [From Soma] Allergy Hives Verified 02/20/20 04:11 divalproex sodium Allergy Rash Verified 02/20/20 04:11 [From Depakote] levetiracetam [From Keppra] Allergy Unknown Verified 06/12/20 01:11 Home Medications Medication Instructions Recorded Confirmed Last Taken Type PHENobarbitaL [Phenobarbital] 64.8 mg PO BID #60 tablet 02/20/20 06/12/20 Unknown Rx Escitalopram Oxalate [Lexapro] 5 mg PO QDAY #30 tablet 06/12/20 Unknown Rx PHENobarbitaL [PHENobarbital] 64.8 mg PO Q12HR #60 tablet 06/12/20 Unknown Rx risperiDONE [RisperDAL] 0.25 mg PO BID tablet 06/12/20 Unknown Rx risperiDONE [RisperDAL] 0.25 mg PO BID #60 tab 06/12/20 Unknown Rx traZODone [Desyrel] 50 mg PO QHS tablet 06/12/20 Unknown Rx traZODone [Desyrel] 50 mg PO QHS #30 tab 06/12/20 Unknown Rx Active Meds: Active Medications Enoxaparin Sodium (Enoxaparin) 40 mg SUB-Q QDAY@1000 ARAVIND Last Admin: 06/14/20 10:38 Dose: 40 mg Documented by: Escitalopram Oxalate (Lexapro) 5 mg PO QDAY [facility] Last Admin: 06/14/20 10:38 Dose: 5 mg Documented by: Lorazepam (Ativan) 2 mg IV Q4H PRN PRN Reason: Agitation Phenobarbital (Phenobarbital) 64.8 mg PO BID [facility] Risperidone (Risperdal) 0.25 mg PO BID [facility] Last Admin: 06/14/20 10:38 Dose: 0.25 mg Documented by: Trazodone HCl (Desyrel) 50 mg PO QHS [facility] Last Admin: 06/13/20 21:27 Dose: 50 mg Documented by: Mental Status Exam - Vital signs Last Vital Signs Temp 99.5 F 06/14/20 08:45 Pulse 104 H 06/14/20 10:00 Resp 18 06/14/20 08:45 BP 131/80 06/14/20 08:45 Pulse Ox 99 06/14/20 08:45 Results Result Diagrams: 06/12/20 07:53 06/14/20 05:12 Abnormal lab results 06/14/20 Range/Units 05:12 Potassium 3.5 L (3.6-5.0) mmol/L BUN 3 L (7-17) mg/dL All other labs normal.
[2020-06-14] MEDS: carvediloL 6.25 MG TAB PO SCH ×2 (17:30→21:26)
[2020-06-14] MEDS: SPIRONOLACTONE 25 MG TAB PO SCH (17:30)
[2020-06-14] MEDS: ASPIRIN EC 81 MG TAB PO SCH (17:30)
[2020-06-14] MEDS: LISINOPRIL 5 MG TAB PO SCH (17:31)
--- NOTE | 2020-06-14 18:56 | Progress Note ---
<ELBALeonardaSTEVEIrlanda - Last Filed: 06/14/20 18:48> Assessment and Plan Assessment and plan: 1) Hypokalemia Current Visit: Yes Status: Acute Plan to address problem: Potassium on admit was 3.1 which was repleted 06/12 potassium 2.9, repleted 06/12 repeat potassium 3.3, repleted 06/14 K 3.5, repleted Patient had a 9 beat run of V. tach therefore cardiology was consulted F/u TSH (pending), 06/12 mag 1.8 Cardiology ordered an echo which showed cardiomyopathy with a reduced EF Cardiology to obtain a Lexiscan thallium stress test in the a.m., n.p.o. after midnight (2) Hyponatremia Current Visit: Yes Status: resolved Plan to address problem: Sodium 124 on admission, was 144 last admission S/p normal saline bolus in the ED and IV hydration with normal saline 06/12 A.m. BMP shows a sodium of 130 06/12 Na 136, 06/14 Na 142 (3) Hypochloremia Current Visit: Yes Status: resolved Plan to address problem: Admit chloride 74 S/p normal saline in the ED and IV hydration with normal saline 06/12 A.m. chloride 80.6, 06/12 Cl 94.9, 06/14 104.5 (4) Seizure Current Visit: Yes Status: Chronic Plan to address problem: Likely 2/2 to noncompliance with anti seizure medicine Continue safety, fall and seizure precaution Resume home anti-seizure medicine Strongly encourage medical compliance Neurology consulted A.m. Depakote level was low however patient endorsed noncompliance therefore doses were not changed. (5) Bipolar Current Visit: Yes Status: Chronic Plan to address problem: Psych consult, appreciate recommendations Psych started: Risperidone 0.25mg po BID, Lexapro 5mg po daily, trazodone 50mg po qhs Does not recommend inpatient hospitalization at this time. They recommended outpatient follow-up for psych care within 1 to 2 weeks of discharge. 06/14 reconsulted however there were no changes to regimen or recommendations (6) Systolic heart failure Current visit: Yes Status: Chronic Cardiology consulted Echocardiogram obtained which showed cardiomyopathy with reduced EF of 30-35% Wen scan stress test in the a.m. on 06/15 History Interval history: This 50-year-old female with seizure, chronic back pain, PTSD, depression and noncompliance presents to the emergency department on 06/12 for a seizure at [facility]. The patient was given 5 mg of Versed IM by EMS prior to arrival. Work-up in the emergency department showed hyponatremia at 124 and hypokalemia at 3.1. A CT head obtained on 06/12 shows no acute abnormality. Her DC was held on 06/13 d/t persistent electrolyte imbalances, 9 beat run of vtach and neuro request to observe for 24 hours and adjust meds accordingly. She obtained an echocardiogram on 06/14 which showed cardiomyopathy with reduced EF of 30 to 35% and was started on beta-blockers, afterload agents, aspirin and spironolactone. Cardiology recommended predischarge Lexiscan thallium stress test which has been ordered for tomorrow. Hospitalist Physical - Physical exam Narrative exam: General appearance: Present: no acute distress - EENT Eyes: Present: PERRL, EOM intact ENT: hearing intact, clear oral mucosa - Neck Neck: Present: supple, normal ROM - Respiratory Respiratory effort: normal Respiratory: bilateral: CTA - Cardiovascular Rhythm: regular Heart Sounds: Present: S1 & S2. Absent: systolic murmur, diastolic murmur - Extremities Extremities: no ischemia, pulses intact, pulses symmetrical, No edema, normal temperature, normal color, Full ROM Peripheral Pulses: within normal limits - Abdominal General gastrointestinal: Present: soft, non-tender, non-distended, normal bowel sounds - Integumentary Integumentary: Present: warm, dry - Musculoskeletal Musculoskeletal: strength equal bilaterally - Psychiatric Psychiatric: cooperative, withdrawn - Neurologic Neurologic: CNII-XII intact, no focal deficits, moves all extremities - Constitutional Vitals: Temp Pulse Resp BP Pulse Ox 99.0 F 104 H 18 124/78 99 06/14/20 12:29 06/14/20 12:29 06/14/20 12:29 06/14/20 12:29 06/14/20 12:29 General appearance: Present: no acute distress Results - Labs CBC & Chem 7: 06/12/20 07:53 06/14/20 05:12 Labs: Laboratory Last Values WBC 5.0 K/mm3 (4.5-11.0) 06/12/20 07:53 RBC 3.48 M/mm3 (3.65-5.03) L 06/12/20 07:53 Hgb 11.2 gm/dl (10.1-14.3) 06/12/20 07:53 Hct 31.5 % (30.3-42.9) 06/12/20 07:53 MCV 90 fl (79-97) 06/12/20 07:53 MCH 32 pg (28-32) 06/12/20 07:53 MCHC 36 % (30-34) H 06/12/20 07:53 RDW 14.6 % (13.2-15.2) 06/12/20 07:53 Plt Count 179 K/mm3 (140-440) 06/12/20 07:53 Lymph % (Auto) 26.4 % (13.4-35.0) 06/12/20 01:30 [place] % (Auto) 13.2 % (0.0-7.3) H 06/12/20 01:30 Eos % (Auto) 0.3 % (0.0-4.3) 06/12/20 01:30 Baso % (Auto) 0.4 % (0.0-1.8) 06/12/20 01:30 Lymph # (Auto) 1.3 K/mm3 (1.2-5.4) 06/12/20 01:30 [place] # (Auto) 0.6 K/mm3 (0.0-0.8) 06/12/20 01:30 Eos # (Auto) 0.0 K/mm3 (0.0-0.4) 06/12/20 01:30 Baso # (Auto) 0.0 K/mm3 (0.0-0.1) 06/12/20 01:30 Seg Neutrophils % 59.7 % (40.0-70.0) 06/12/20 01:30 Seg Neutrophils # 2.9 K/mm3 (1.8-7.7) 06/12/20 01:30 Sodium 142 mmol/L (137-145) 06/14/20 05:12 Potassium 3.5 mmol/L (3.6-5.0) L 06/14/20 05:12 Chloride 104.5 mmol/L (98-107) 06/14/20 05:12 Carbon Dioxide 28 mmol/L (22-30) 06/14/20 05:12 Anion Gap 13 mmol/L 06/14/20 05:12 BUN 3 mg/dL (7-17) L 06/14/20 05:12 Creatinine 0.6 mg/dL (0.6-1.2) 06/14/20 05:12 Estimated GFR > 60 ml/min 06/14/20 05:12 BUN/Creatinine Ratio 5 % 06/14/20 05:12 Glucose 91 mg/dL (65-100) 06/14/20 05:12 POC Glucose 105 mg/dL (70-105) 06/12/20 16:42 Calcium 8.5 mg/dL (8.4-10.2) 06/14/20 05:12 Magnesium 1.80 mg/dL (1.7-2.3) 06/12/20 04:53 Phenobarbital 7.6 ug/mL (15.0-40.0) L 06/12/20 01:30 Coronavirus (PCR) Negative (Negative) 06/12/20 08:58 - Diagnostic Impressions Diagnostic Impressions: Echocardiogram 06/13/20 00:00 Transthoracic Echocardiogram Indication: PSVT BP: 131/80 HR: 89 Conclusions *The left ventricular chamber size is mildly dilated. *Global left ventricular systolic function is moderate to severely decreased. *The estimated ejection fraction is 30-35%. *There is mild mitral regurgitation. *There is trace tricuspid regurgitation. *The inferior vena cava is dilated. Findings Left Ventricle: The left ventricular chamber size is mildly dilated. Mild concentric left ventricular hypertrophy is observed. Global left ventricular systolic function is moderate to severely decreased. The estimated ejection fraction is 30-35%. Left Atrium: The left atrial chamber size is normal. Right Ventricle: The right ventricular cavity size is normal. Right Atrium: The right atrial cavity size is normal. Aortic Valve: The aortic valve is trileaflet. The aortic valve leaflets are mildly thickened. There is no evidence of aortic regurgitation. There is no evidence of aortic stenosis. Mitral Valve: The mitral valve leaflets are mildly thickened. There is mild mitral regurgitation. There is no evidence of mitral stenosis. Tricuspid Valve: There is trace tricuspid regurgitation. No pulmonary hypertension is noted. Pulmonic Valve: There is trace pulmonic regurgitation. Pericardium: There is no pericardial effusion. Aorta: There is no dilatation of the ascending aorta. There is no dilatation of the aortic root. Venous: The inferior vena cava is dilated. Measurements Chambers 2D Name Value Normal Range IVSd (2D) 0.91 cm (0.6 - 1.1) LVPWd (2D) 0.94 cm (0.6 - 1.1) LVIDd (2D) 4.28 cm (3.7 - 5.6) LVIDs (2D) 3.42 cm (2 - 3.8) LV FS (2D) 19.99 % - EF Teichholz (2D) 41.25 % - Ao root diameter (2D) 2.93 cm (2 - 3.7) Volumes/Mass Name Value Normal Range LA ESV SP 4CH (A/L) 14 ml - LA ESV SP 2CH (A/L) 18.4 ml - LA ESV BP (A/L) 16.6 ml - LA ESV BP (A/L) index 11.86 ml/m2 - LA ESV SP 4CH (MOD) 12.15 ml - LA ESV SP 2CH (MOD) 17.95 ml - LA ESV BP (MOD) 15.18 ml - LA ESV BP (MOD) index 10.84 ml/m2 - Diastolic/Systolic Function Name Value Normal Range MV E-wave Vmax 0.56 m/sec - MV deceleration time 145.94 msec - MV A-wave Vmax 0.71 m/sec - MV E:A ratio 0.79 ratio - Aortic Valve Name Value Normal Range AV Vmax 1.01 m/sec - AV VTI 18.42 cm - AV peak gradient 4.12 mmHg - AV mean gradient 2.61 mmHg - LVOT diameter 2.05 cm - LVOT Vmax 0.84 m/sec - LVOT VTI 14.23 cm - LVOT peak gradient 2.82 mmHg - LVOT mean gradient 1.39 mmHg - SV LVOT 46.81 ml - CAMILLE (continuity Vmax) 2.72 cm2 - CAMILLE (continuity VTI) 2.54 cm2 - Tricuspid Valve Name Value Normal Range IVC diameter 2.04 cm (1.2 - 2.3) Pulmonic Valve/Qp:Qs Name Value Normal Range PV acceleration time 98.95 msec - Plaza/IV: Voiding Method Toilet IV Catheter Type [Right Peripheral IV Forearm] Active Medications - Current Medications Current Medications: Generic Name Dose Route Start Last Admin Trade Name Freq PRN Reason Stop Dose Admin Aspirin 81 mg 06/14/20 15:00 06/14/20 17:30 Halfprin Ec PO 81 mg QDAY ARAVIND Administration Carvedilol 6.25 mg 06/14/20 15:00 06/14/20 17:30 Coreg PO 6.25 mg BID ARAVIND Administration Enoxaparin Sodium 40 mg 06/12/20 10:00 06/14/20 10:38 Enoxaparin SUB-Q 40 mg QDAY@1000 ARAVIND Administration Escitalopram Oxalate 5 mg 06/12/20 14:00 06/14/20 10:38 Lexapro PO 5 mg QDAY ARAVIND Administration Lisinopril 2.5 mg 06/14/20 15:00 06/14/20 17:31 Zestril PO 2.5 mg QDAY ARAVNID Administration Lorazepam 2 mg 06/12/20 04:40 Ativan IV Q4H PRN Agitation Phenobarbital 64.8 mg 06/14/20 22:00 Phenobarbital PO BID ARAVIND Risperidone 0.25 mg 06/12/20 14:00 06/14/20 10:38 Risperdal PO 0.25 mg BID ARAVIND Administration Spironolactone 25 mg 06/14/20 15:00 06/14/20 17:30 Aldactone PO 25 mg QDAY ARAVIND Administration Trazodone HCl 50 mg 06/12/20 22:00 06/13/20 21:27 Desyrel PO 50 mg QHS ARAVIND Administration Nutrition/Malnutrition Assess - Dietary Evaluation Nutrition/Malnutrition Findings: Nutrition Notes Start: 06/14/20 11:31 Freq: Status: Active Protocol: Document 06/14/20 11:33 GUME (Rec: 06/14/20 11:48 GUME [id number]) Co-Sign 06/14/20 11:33 LM Nutrition Notes Need for Assessment generated from: Low BMI Initial or Follow up Assessment Other Pertinent Diagnosis seizure disorder, hypokalemia, hyponatremia, hx of medication noncompliance Current Diet Cardiac Labs/Tests K 3.5 BUN 3 Pertinent Medications NS 125 ml/hr Height 5 ft 4 in Weight 41.4 kg [place] Body Weight (kg) 54.54 BMI 15.6 Intake Prior to Admission Poor Weight change and time frame 13% wt loss in 3 months (pt weighed 47.627kg on last adm) Weight Status Underweight Subjective/Other Information Screened for low BMI. Pt reports eating very little and decreased appetite SKI PATROL d/t mental health. Pt states "I'm a horrible person, I don't deserve any of this." Pt on antidepressant medication. Burn Absent Trauma Absent Food Allergy No Current % PO Negligible Minimum of two criteria Yes Energy Intake (severe) < or equal to 50% Estimated Energy Requirement > or equal to 5 days Interpretation of Weight Loss (severe) >7.5% in 3 months Muscle Mass Moderate Depletion (severe) Reduced Grill Attendant Strength Measurably Reduced (severe) #2 Nutrition Diagnosis Inadequate oral intake Etiology decreased appetite, poor mental health As Evidenced by Signs and Symptoms pt consuming 0% PO #1 Nutrition Diagnosis Malnutrition Etiology decreased appetite, poor mental health As Evidenced by Signs and Symptoms <50% EER >5 days, >7.5% wt loss in 3 months, moderate muscle depletion, reduced luggage liner strength Is patient on ventilator? No Is Patient Ambulatory and/or Out of Bed Yes REE-([place]-St. or-ambulatory/OOB) [ 1318.200 NUTR.MSJOOB] Kcal/Kg value to use for calculation 43 Approximate Energy Requirements Using 1780 kcal/Kg Calculation Used for Recommendations Kcal/kg Additional Notes Pro: 50-62 g (1.2-1.5 g/kg) Fluid: 1 ml/kcal Nutrition Intervention Change Diet Order: Continue Cardiac Goal #1 Meet at least 80% energy and protein needs Goal #2 Wt gain/maintenance Anticipated Discharge Needs: Cardiac diet Follow-Up By: 06/16/20 Additional Comments F/U for intakes and plan of care <ADRIAN SOTO - Last Filed: 06/15/20 07:22> Assessment and Plan Assessment and plan: I saw and evaluated the patient. I agree with the findings and the plan of care as documented in the Nurse Practitioner's~note, with the following corrections and additions. Hospitalist Physical - Constitutional Vitals: Temp Pulse Resp BP Pulse Ox 98.5 F 86 16 114/70 100 06/15/20 04:26 06/15/20 04:26 06/15/20 04:26 06/15/20 04:26 06/15/20 04:26 Results - Labs CBC & Chem 7: 06/12/20 07:53 06/14/20 05:12 Labs: Laboratory Last Values WBC 5.0 K/mm3 (4.5-11.0) 06/12/20 07:53 RBC 3.48 M/mm3 (3.65-5.03) L 06/12/20 07:53 Hgb 11.2 gm/dl (10.1-14.3) 06/12/20 07:53 Hct 31.5 % (30.3-42.9) 06/12/20 07:53 MCV 90 fl (79-97) 06/12/20 07:53 MCH 32 pg (28-32) 06/12/20 07:53 MCHC 36 % (30-34) H 06/12/20 07:53 RDW 14.6 % (13.2-15.2) 06/12/20 07:53 Plt Count 179 K/mm3 (140-440) 06/12/20 07:53 Lymph % (Auto) 26.4 % (13.4-35.0) 06/12/20 01:30 [place] % (Auto) 13.2 % (0.0-7.3) H 06/12/20 01:30 Eos % (Auto) 0.3 % (0.0-4.3) 06/12/20 01:30 Baso % (Auto) 0.4 % (0.0-1.8) 06/12/20 01:30 Lymph # (Auto) 1.3 K/mm3 (1.2-5.4) 06/12/20 01:30 [place] # (Auto) 0.6 K/mm3 (0.0-0.8) 06/12/20 01:30 Eos # (Auto) 0.0 K/mm3 (0.0-0.4) 06/12/20 01:30 Baso # (Auto) 0.0 K/mm3 (0.0-0.1) 06/12/20 01:30 Seg Neutrophils % 59.7 % (40.0-70.0) 06/12/20 01:30 Seg Neutrophils # 2.9 K/mm3 (1.8-7.7) 06/12/20 01:30 Sodium 142 mmol/L (137-145) 06/14/20 05:12 Potassium 3.5 mmol/L (3.6-5.0) L 06/14/20 05:12 Chloride 104.5 mmol/L (98-107) 06/14/20 05:12 Carbon Dioxide 28 mmol/L (22-30) 06/14/20 05:12 Anion Gap 13 mmol/L 06/14/20 05:12 BUN 3 mg/dL (7-17) L 06/14/20 05:12 Creatinine 0.6 mg/dL (0.6-1.2) 06/14/20 05:12 Estimated GFR > 60 ml/min 06/14/20 05:12 BUN/Creatinine Ratio 5 % 06/14/20 05:12 Glucose 91 mg/dL (65-100) 06/14/20 05:12 POC Glucose 105 mg/dL (70-105) 06/12/20 16:42 Calcium 8.5 mg/dL (8.4-10.2) 06/14/20 05:12 Magnesium 1.80 mg/dL (1.7-2.3) 06/12/20 04:53 Phenobarbital 7.6 ug/mL (15.0-40.0) L 06/12/20 01:30 Coronavirus (PCR) Negative (Negative) 06/12/20 08:58 - Diagnostic Impressions Diagnostic Impressions: Echocardiogram 06/13/20 00:00 Transthoracic Echocardiogram Indication: PSVT BP: 131/80 HR: 89 Conclusions *The left ventricular chamber size is mildly dilated. *Global left ventricular systolic function is moderate to severely decreased. *The estimated ejection fraction is 30-35%. *There is mild mitral regurgitation. *There is trace tricuspid regurgitation. *The inferior vena cava is dilated. Findings Left Ventricle: The left ventricular chamber size is mildly dilated. Mild concentric left ventricular hypertrophy is observed. Global left ventricular systolic function is moderate to severely decreased. The estimated ejection fraction is 30-35%. Left Atrium: The left atrial chamber size is normal. Right Ventricle: The right ventricular cavity size is normal. Right Atrium: The right atrial cavity size is normal. Aortic Valve: The aortic valve is trileaflet. The aortic valve leaflets are mildly thickened. There is no evidence of aortic regurgitation. There is no evidence of aortic stenosis. Mitral Valve: The mitral valve leaflets are mildly thickened. There is mild mitral regurgitation. There is no evidence of mitral stenosis. Tricuspid Valve: There is trace tricuspid regurgitation. No pulmonary hypertension is noted. Pulmonic Valve: There is trace pulmonic regurgitation. Pericardium: There is no pericardial effusion. Aorta: There is no dilatation of the ascending aorta. There is no dilatation of the aortic root. Venous: The inferior vena cava is dilated. Measurements Chambers 2D Name Value Normal Range IVSd (2D) 0.91 cm (0.6 - 1.1) LVPWd (2D) 0.94 cm (0.6 - 1.1) LVIDd (2D) 4.28 cm (3.7 - 5.6) LVIDs (2D) 3.42 cm (2 - 3.8) LV FS (2D) 19.99 % - EF Teichholz (2D) 41.25 % - Ao root diameter (2D) 2.93 cm (2 - 3.7) Volumes/Mass Name Value Normal Range LA ESV SP 4CH (A/L) 14 ml - LA ESV SP 2CH (A/L) 18.4 ml - LA ESV BP (A/L) 16.6 ml - LA ESV BP (A/L) index 11.86 ml/m2 - LA ESV SP 4CH (MOD) 12.15 ml - LA ESV SP 2CH (MOD) 17.95 ml - LA ESV BP (MOD) 15.18 ml - LA ESV BP (MOD) index 10.84 ml/m2 - Diastolic/Systolic Function Name Value Normal Range MV E-wave Vmax 0.56 m/sec - MV deceleration time 145.94 msec - MV A-wave Vmax 0.71 m/sec - MV E:A ratio 0.79 ratio - Aortic Valve Name Value Normal Range AV Vmax 1.01 m/sec - AV VTI 18.42 cm - AV peak gradient 4.12 mmHg - AV mean gradient 2.61 mmHg - LVOT diameter 2.05 cm - LVOT Vmax 0.84 m/sec - LVOT VTI 14.23 cm - LVOT peak gradient 2.82 mmHg - LVOT mean gradient 1.39 mmHg - SV LVOT 46.81 ml - CAMILLE (continuity Vmax) 2.72 cm2 - CAMILLE (continuity VTI) 2.54 cm2 - Tricuspid Valve Name Value Normal Range IVC diameter 2.04 cm (1.2 - 2.3) Pulmonic Valve/Qp:Qs Name Value Normal Range PV acceleration time 98.95 msec - Plaza/IV: Voiding Method Toilet IV Catheter Type [Right Peripheral IV Forearm] Active Medications - Current Medications Current Medications: Generic Name Dose Route Start Last Admin Trade Name Freq PRN Reason Stop Dose Admin Aspirin 81 mg 06/14/20 15:00 06/14/20 17:30 Halfprin Ec PO 81 mg QDAY ARAVIND Administration Carvedilol 6.25 mg 06/14/20 15:00 06/14/20 21:26 Coreg PO 6.25 mg BID ARAVIND Administration Enoxaparin Sodium 40 mg 06/12/20 10:00 06/14/20 10:38 Enoxaparin SUB-Q 40 mg QDAY@1000 ARAVIND Administration Escitalopram Oxalate 5 mg 06/12/20 14:00 06/14/20 10:38 Lexapro PO 5 mg QDAY ARAVIND Administration Lisinopril 2.5 mg 06/14/20 15:00 06/14/20 17:31 Zestril PO 2.5 mg QDAY ARAVIND Administration Lorazepam 2 mg 06/12/20 04:40 Ativan IV Q4H PRN Agitation Phenobarbital 64.8 mg 06/14/20 22:00 06/14/20 21:26 Phenobarbital PO 64.8 mg BID ARAVIND Administration Risperidone 0.25 mg 06/12/20 14:00 06/14/20 21:26 Risperdal PO 0.25 mg BID ARAVIND Administration Spironolactone 25 mg 06/14/20 15:00 06/14/20 17:30 Aldactone PO 25 mg QDAY ARAVIND Administration Trazodone HCl 50 mg 06/12/20 22:00 06/14/20 21:26 Desyrel PO 50 mg QHS ARAVIND Administration Nutrition/Malnutrition Assess - Dietary Evaluation Nutrition/Malnutrition Findings: Nutrition Notes Start: 06/14/20 1 1:31 Freq: Status: Active Protocol: Document 06/14/20 11:33 GUME (Rec: 06/14/20 11:48 GUME [id number]) Co-Sign 06/14/20 11:33 LM Nutrition Notes Need for Assessment generated from: Low BMI Initial or Follow up Assessment Other Pertinent Diagnosis seizure disorder, hypokalemia, hyponatremia, hx of medication noncompliance Current Diet Cardiac Labs/Tests K 3.5 BUN 3 Pertinent Medications NS 125 ml/hr Height 5 ft 4 in Weight 41.4 kg [place] Body Weight (kg) 54.54 BMI 15.6 Intake Prior to Admission Poor Weight change and time frame 13% wt loss in 3 months (pt weighed 47.627kg on last adm) Weight Status Underweight Subjective/Other Information Screened for low BMI. Pt reports eating very little and decreased appetite SKI PATROL d/t mental health. Pt states "I'm a horrible person, I don't deserve any of this." Pt on antidepressant medication. Burn Absent Trauma Absent Food Allergy No Current % PO Negligible Minimum of two criteria Yes Energy Intake (severe) < or equal to 50% Estimated Energy Requirement > or equal to 5 days Interpretation of Weight Loss (severe) >7.5% in 3 months Muscle Mass Moderate Depletion (severe) Reduced Grill Attendant Strength Measurably Reduced (severe) #2 Nutrition Diagnosis Inadequate oral intake Etiology decreased appetite, poor mental health As Evidenced by Signs and Symptoms pt consuming 0% PO #1 Nutrition Diagnosis Malnutrition Etiology decreased appetite, poor mental health As Evidenced by Signs and Symptoms <50% EER >5 days, >7.5% wt loss in 3 months, moderate muscle depletion, reduced luggage liner strength Is patient on ventilator? No Is Patient Ambulatory and/or Out of Bed Yes REE-([place]. Jeor-ambulatory/OOB) [ 1318.200 NUTR.MSJOOB] Kcal/Kg value to use for calculation 43 Approximate Energy Requirements Using 1780 kcal/Kg Calculation Used for Recommendations Kcal/kg Additional Notes Pro: 50-62 g (1.2-1.5 g/kg) Fluid: 1 ml/kcal Nutrition Intervention Change Diet Order: Continue Cardiac Goal #1 Meet at least 80% energy and protein needs Goal #2 Wt gain/maintenance Anticipated Discharge Needs: Cardiac diet Follow-Up By: 06/16/20 Additional Comments F/U for intakes and plan of care
[2020-06-14] MEDS: traZODone 50 MG TAB PO SCH (21:26)
[2020-06-15] MEDS ORDERED: REGADENOSON 0.4 MG/5 ML INJ IV ONE ×2 (07:52)
--- NOTE | 2020-06-15 11:07 | Treadmill Report ---
THALLIUM STRESS TEST LEFT VENTRICLE: Left ventricle is at the upper limits of normal in size. Perfusion study demonstrates homogeneous uptake of the tracer in all segments, no significant defects identified. Normal apical thinning is noted. Gated analysis calculates left ventricular systolic function within normal limits, ejection fraction 56%. CONCLUSION: Normal myocardial perfusion study. JOB# [id number] CA/NTS
[2020-06-15 11:26] LABS: Blood Urea Nitrogen 4 mg/dL (7-17); Calcium 9.4 mg/dL (8.4-10.2); Hemolysis Index 24
[2020-06-15 11:27] LABS: BUN/Creatinine Ratio 7
[2020-06-15] MEDS: SPIRONOLACTONE 25 MG TAB PO SCH (11:35)
[2020-06-15] MEDS: risperiDONE 0.25 MG TAB PO SCH ×2 (11:45→21:53)
[2020-06-15] MEDS: carvediloL 6.25 MG TAB PO SCH ×2 (11:45→21:53)
[2020-06-15] MEDS: ENOXAPARIN 40 MG/0.4 ML INJ SUB-Q SCH (11:45)
[2020-06-15] MEDS: ASPIRIN EC 81 MG TAB PO SCH (11:45)
[2020-06-15] MEDS: ESCITALOPRAM 10 MG/10 ML ORAL LIQD PO SCH (11:45)
[2020-06-15] MEDS: LISINOPRIL 5 MG TAB PO SCH (11:45)
[2020-06-15] MEDS: PHENobarbital 32.4 MG TAB PO SCH ×2 (11:45→21:53)
[2020-06-15] MEDS: traZODone 50 MG TAB PO SCH (21:53)
--- NOTE | 2020-06-16 09:25 | Progress Note ---
Assessment and Plan Transient NSVT likely s/t hypokalemia, potassium of 2.9 no reoccurrence Recurrent Seizure -reason for admission Dilated Cardiomyopathy, uncertain duration LVEF 30-35% by echo this presentation. normal myocardial perfusion scan. Continue medical therapy for nonischemic cardiomyopathy. Advised dietary restrictions. Stable cardiac mace for discharge. Subjective Date of service: 06/16/20 Principal diagnosis: Seizures Interval history: Patient is resting in bed comfortably. She denies palpitations, unusual shortness of breath and chest pain. Objective Vital Signs Temp Pulse Resp BP BP Pulse Ox 06/16/20 07:47 98.8 F 92 H 18 120/67 100 06/16/20 00:05 98.4 F 90 16 115/72 100 06/15/20 20:57 87 06/15/20 20:01 98.6 F 82 16 132/70 97 06/15/20 16:29 99.0 F 87 16 108/79 100 06/15/20 16:28 99.0 F 88 16 108/79 100 06/15/20 14:00 88 06/15/20 13:44 98.8 F 85 18 119/70 100 06/15/20 12:09 98.8 F 82 16 119/70 100 06/15/20 09:47 120 H 111/68 06/15/20 09:46 119 H 110/68 06/15/20 09:45 130 H 113/72 06/15/20 09:44 131 H 116/78 06/15/20 09:43 126 H 118/73 - Physical Examination General: No Apparent Distress HEENT: Positive: PERRL Neck: Positive: neck supple Cardiac: Positive: Reg Rate and Rhythm Lungs: Positive: Decreased Breath Sounds Neuro: Positive: Grossly Intact Abdomen: Positive: Soft Extremities: Absent: edema - Labs and Meds Comprehensive Metabolic Panel 06/15/20 Range/Units 10:42 Sodium 138 (137-145) mmol/L Potassium 3.6 (3.6-5.0) mmol/L Chloride 100.7 (98-107) mmol/L Carbon Dioxide 29 (22-30) mmol/L BUN 4 L (7-17) mg/dL Creatinine 0.6 (0.6-1.2) mg/dL Glucose 95 (65-100) mg/dL Calcium 9.4 (8.4-10.2) mg/dL
[2020-06-16] MEDS: ESCITALOPRAM 10 MG/10 ML ORAL LIQD PO SCH (10:55)
[2020-06-16] MEDS: ASPIRIN EC 81 MG TAB PO SCH (10:56)
[2020-06-16] MEDS: LISINOPRIL 5 MG TAB PO SCH (10:56)
[2020-06-16] MEDS: SPIRONOLACTONE 25 MG TAB PO SCH (10:58)
[2020-06-16] MEDS: risperiDONE 0.25 MG TAB PO SCH (10:58)
[2020-06-16] MEDS: carvediloL 6.25 MG TAB PO SCH (10:58)
[2020-06-16] MEDS: PHENobarbital 32.4 MG TAB PO SCH (10:59)
[2020-06-16] MEDS: ENOXAPARIN 40 MG/0.4 ML INJ SUB-Q SCH (10:59)
--- NOTE | 2020-06-16 12:01 | Progress Note ---
<LUARASTEVEIrlanda - Last Filed: 06/16/20 12:07> Assessment and Plan Assessment and plan: 1) Hypokalemia Current Visit: Yes Status: Resolved Plan to address problem: Potassium on admit was 3.1 which was repleted 06/12 potassium 2.9, repleted 06/12 repeat potassium 3.3, repleted 06/14 K 3.5, repleted 06/15 potassium 3.6 Patient had a 9 beat run of V. tach therefore cardiology was consulted 06/12 TSH 0.17 06/12 mag 1.8 Cardiology ordered an echo which showed cardiomyopathy with a reduced EF (2) Hyponatremia Current Visit: Yes Status: resolved Plan to address problem: Sodium 124 on admission, was 144 last admission S/p normal saline bolus in the ED and IV hydration with normal saline 06/12 A.m. BMP shows a sodium of 130 06/12 Na 136, 06/14 Na 142 (3) Hypochloremia Current Visit: Yes Status: resolved Plan to address problem: Admit chloride 74 S/p normal saline in the ED and IV hydration with normal saline 06/12 A.m. chloride 80.6, 06/12 Cl 94.9, 06/14 104.5 (4) Seizure Current Visit: Yes Status: Chronic Plan to address problem: Likely 2/2 to noncompliance with anti seizure medicine Continue safety, fall and seizure precaution Resume home anti-seizure medicine Strongly encourage medical compliance Neurology consulted A.m. Depakote level was low however patient endorsed noncompliance therefore doses were not changed 06/15 Depakote level 19.1 (5) Bipolar Current Visit: Yes Status: Chronic Plan to address problem: Psych consult, appreciate recommendations Psych started: Risperidone 0.25mg po BID, Lexapro 5mg po daily, trazodone 50mg po qhs Does not recommend inpatient hospitalization at this time. They recommended outpatient follow-up for psych care within 1 to 2 weeks of discharge. 06/14 reconsulted however there were no changes to regimen or recommendations (6) Systolic heart failure Current visit: Yes Status: Chronic Cardiology consulted Echocardiogram obtained which showed cardiomyopathy with reduced EF of 30-35% 06/15 Lexiscan stress test showed coronary perfusion History Interval history: This 50-year-old female with seizure, chronic back pain, PTSD, depression and noncompliance presents to the emergency department on 06/12 for a seizure at home. The patient was given 5 mg of Versed IM by EMS prior to arrival. Work-up in the emergency department showed hyponatremia at 124 and hypokalemia at 3.1. A CT head obtained on 06/12 shows no acute abnormality. Her DC was held on 06/13 d/t persistent electrolyte imbalances, 9 beat run of vtach and neuro request to observe for 24 hours and adjust meds accordingly. She obtained an echocardiogram on 06/14 which showed cardiomyopathy with reduced EF of 30 to 35% and was started on beta-blockers, afterload agents, aspirin and spironolactone. On 06/15 she obtained a Lexiscan stress test which showed normal perfusion. On 06/15 patient was hypokalemic and was repleted. Repeat K today is within normal limits. Patient was set to be discharged yesterday however her discharge was delayed by case management and systems project manager of the floor. Patient has been cleared for discharge from a medical standpoint. Today cardiology has also cleared the patient for discharge. Patient still exhibits depressive thoughts, flat affect however she still denies any SI or HI. Hospitalist Physical - Physical exam Narrative exam: General appearance: Present: no acute distress - EENT Eyes: Present: PERRL, EOM intact ENT: hearing intact, clear oral mucosa - Neck Neck: Present: supple, normal ROM - Respiratory Respiratory effort: normal Respiratory: bilateral: CTA - Cardiovascular Rhythm: regular Heart Sounds: Present: S1 & S2. Absent: systolic murmur, diastolic murmur - Extremities Extremities: no ischemia, pulses intact, pulses symmetrical, No edema, normal temperature, normal color, Full ROM Peripheral Pulses: within normal limits - Abdominal General gastrointestinal: Present: soft, non-tender, non-distended, normal bowel sounds - Integumentary Integumentary: Present: warm, dry - Musculoskeletal Musculoskeletal: strength equal bilaterally - Psychiatric Psychiatric: cooperative, withdrawn - Neurologic Neurologic: CNII-XII intact, no focal deficits, moves all extremities - Constitutional Vitals: Temp Pulse Resp BP Pulse Ox 98.8 F 92 H 18 120/67 100 06/16/20 07:47 06/16/20 10:58 06/16/20 07:47 06/16/20 10:58 06/16/20 07:47 General appearance: Present: no acute distress Results - Labs CBC & Chem 7: 06/12/20 07:53 06/15/20 10:42 Labs: Laboratory Last Values WBC 5.0 K/mm3 (4.5-11.0) 06/12/20 07:53 RBC 3.48 M/mm3 (3.65-5.03) L 06/12/20 07:53 Hgb 11.2 gm/dl (10.1-14.3) 06/12/20 07:53 Hct 31.5 % (30.3-42.9) 06/12/20 07:53 MCV 90 fl (79-97) 06/12/20 07:53 MCH 32 pg (28-32) 06/12/20 07:53 MCHC 36 % (30-34) H 06/12/20 07:53 RDW 14.6 % (13.2-15.2) 06/12/20 07:53 Plt Count 179 K/mm3 (140-440) 06/12/20 07:53 Lymph % (Auto) 26.4 % (13.4-35.0) 06/12/20 01:30 [place] % (Auto) 13.2 % (0.0-7.3) H 06/12/20 01:30 Eos % (Auto) 0.3 % (0.0-4.3) 06/12/20 01:30 Baso % (Auto) 0.4 % (0.0-1.8) 06/12/20 01:30 Lymph # (Auto) 1.3 K/mm3 (1.2-5.4) 06/12/20 01:30 [place] # (Auto) 0.6 K/mm3 (0.0-0.8) 06/12/20 01:30 Eos # (Auto) 0.0 K/mm3 (0.0-0.4) 06/12/20 01:30 Baso # (Auto) 0.0 K/mm3 (0.0-0.1) 06/12/20 01:30 Seg Neutrophils % 59.7 % (40.0-70.0) 06/12/20 01:30 Seg Neutrophils # 2.9 K/mm3 (1.8-7.7) 06/12/20 01:30 Sodium 138 mmol/L (137-145) 06/15/20 10:42 Potassium 3.6 mmol/L (3.6-5.0) 06/15/20 10:42 Chloride 100.7 mmol/L (98-107) 06/15/20 10:42 Carbon Dioxide 29 mmol/L (22-30) 06/15/20 10:42 Anion Gap 12 mmol/L 06/15/20 10:42 BUN 4 mg/dL (7-17) L 06/15/20 10:42 Creatinine 0.6 mg/dL (0.6-1.2) 06/15/20 10:42 Estimated GFR > 60 ml/min 06/15/20 10:42 BUN/Creatinine Ratio 7 % 06/15/20 10:42 Glucose 95 mg/dL (65-100) 06/15/20 10:42 POC Glucose 105 mg/dL (70-105) 06/12/20 16:42 Calcium 9.4 mg/dL (8.4-10.2) 06/15/20 10:42 Magnesium 1.90 mg/dL (1.7-2.3) 06/13/20 13:49 TSH 0.717 mlU/mL (0.270-4.200) 06/13/20 13:49 Phenobarbital 19.1 ug/mL (15.0-40.0) 06/15/20 10:42 Coronavirus (PCR) Negative (Negative) 06/12/20 08:58 - Diagnostic Impressions Diagnostic Impressions: Echocardiogram 06/13/20 00:00 Transthoracic Echocardiogram Indication: PSVT BP: 131/80 HR: 89 Conclusions *The left ventricular chamber size is mildly dilated. *Global left ventricular systolic function is moderate to severely decreased. *The estimated ejection fraction is 30-35%. *There is mild mitral regurgitation. *There is trace tricuspid regurgitation. *The inferior vena cava is dilated. Findings Left Ventricle: The left ventricular chamber size is mildly dilated. Mild concentric left ventricular hypertrophy is observed. Global left ventricular systolic function is moderate to severely decreased. The estimated ejection fraction is 30-35%. Left Atrium: The left atrial chamber size is normal. Right Ventricle: The right ventricular cavity size is normal. Right Atrium: The right atrial cavity size is normal. Aortic Valve: The aortic valve is trileaflet. The aortic valve leaflets are mildly thickened. There is no evidence of aortic regurgitation. There is no evidence of aortic stenosis. Mitral Valve: The mitral valve leaflets are mildly thickened. There is mild mitral regurgitation. There is no evidence of mitral stenosis. Tricuspid Valve: There is trace tricuspid regurgitation. No pulmonary hypertension is noted. Pulmonic Valve: There is trace pulmonic regurgitation. Pericardium: There is no pericardial effusion. Aorta: There is no dilatation of the ascending aorta. There is no dilatation of the aortic root. Venous: The inferior vena cava is dilated. Measurements Chambers 2D Name Value Normal Range IVSd (2D) 0.91 cm (0.6 - 1.1) LVPWd (2D) 0.94 cm (0.6 - 1.1) LVIDd (2D) 4.28 cm (3.7 - 5.6) LVIDs (2D) 3.42 cm (2 - 3.8) LV FS (2D) 19.99 % - EF Teichholz (2D) 41.25 % - Ao root diameter (2D) 2.93 cm (2 - 3.7) Volumes/Mass Name Value Normal Range LA ESV SP 4CH (A/L) 14 ml - LA ESV SP 2CH (A/L) 18.4 ml - LA ESV BP (A/L) 16.6 ml - LA ESV BP (A/L) index 11.86 ml/m2 - LA ESV SP 4CH (MOD) 12.15 ml - LA ESV SP 2CH (MOD) 17.95 ml - LA ESV BP (MOD) 15.18 ml - LA ESV BP (MOD) index 10.84 ml/m2 - Diastolic/Systolic Function Name Value Normal Range MV E-wave Vmax 0.56 m/sec - MV deceleration time 145.94 msec - MV A-wave Vmax 0.71 m/sec - MV E:A ratio 0.79 ratio - Aortic Valve Name Value Normal Range AV Vmax 1.01 m/sec - AV VTI 18.42 cm - AV peak gradient 4.12 mmHg - AV mean gradient 2.61 mmHg - LVOT diameter 2.05 cm - LVOT Vmax 0.84 m/sec - LVOT VTI 14.23 cm - LVOT peak gradient 2.82 mmHg - LVOT mean gradient 1.39 mmHg - SV LVOT 46.81 ml - CAMILLE (continuity Vmax) 2.72 cm2 - CAMILLE (continuity VTI) 2.54 cm2 - Tricuspid Valve Name Value Normal Range IVC diameter 2.04 cm (1.2 - 2.3) Pulmonic Valve/Qp:Qs Name Value Normal Range PV acceleration time 98.95 msec - Plaza/IV: Voiding Method Toilet IV Catheter Type [Right Peripheral IV Forearm] Active Medications - Current Medications Current Medications: Generic Name Dose Route Start Last Admin Trade Name Freq PRN Reason Stop Dose Admin Aspirin 81 mg 06/14/20 15:00 06/16/20 10:56 Halfprin Ec PO 81 mg QDAY ARAVIND Administration Carvedilol 6.25 mg 06/14/20 15:00 06/16/20 10:58 Coreg PO 6.25 mg BID ARAVIND Administration Enoxaparin Sodium 40 mg 06/12/20 10:00 06/16/20 10:59 Enoxaparin SUB-Q 40 mg QDAY@1000 ARAVIND Administration Escitalopram Oxalate 5 mg 06/12/20 14:00 06/16/20 10:55 Lexapro PO 5 mg QDAY ARAVIND Administration Lisinopril 2.5 mg 06/14/20 15:00 06/16/20 10:56 Zestril PO 2.5 mg QDAY ARAVIND Administration Lorazepam 2 mg 06/12/20 04:40 Ativan IV Q4H PRN Agitation Phenobarbital 64.8 mg 06/14/20 22:00 06/16/20 10:59 Phenobarbital PO 64.8 mg BID ARAVIND Administration Risperidone 0.25 mg 06/12/20 14:00 06/16/20 10:58 Risperdal PO 0.25 mg BID ARAVIND Administration Spironolactone 25 mg 06/14/20 15:00 06/16/20 10:58 Aldactone PO 25 mg QDAY ARAVIND Administration Trazodone HCl 50 mg 06/12/20 22:00 06/15/20 21:53 Desyrel PO 50 mg QHS ARAVIND Administration Nutrition/Malnutrition Assess - Dietary Evaluation Nutrition/Malnutrition Findings: Nutrition Notes Start: 06/14/20 11:31 Freq: Status: Active Protocol: Document 06/16/20 09:50 GUME (Rec: 06/16/20 09:56 GUME [id number]) Co-Sign 06/16/20 09:50 LM Nutrition Notes Initial or Follow up Reassessment Other Pertinent Diagnosis bipolar/depression, seizure disorder, hx medication noncompliance Current Diet Cardiac Labs/Tests BUN 4 Pertinent Medications Reviewed Height 5 ft 4 in Weight 41.4 kg Ten Sleep Body Weight (kg) 54.54 BMI 15.6 Weight Status Underweight Subjective/Other Information F/U for intakes and plan of care. Pt reports no intakes and refused offer for ONS. Per chart, pt is homeless and given list of shelters by CM. Pt D/C order on hold d/t pt mental health. Burn Absent Trauma Absent Food Allergy No Current % PO Negligible Minimum of two criteria Yes Energy Intake (severe) < or equal to 50% Estimated Energy Requirement > or equal to 5 days Interpretation of Weight Loss (severe) >7.5% in 3 months Muscle Mass Moderate Depletion (severe) Reduced Transportation Economics Teacher Strength Measurably Reduced (severe) #2 Nutrition Diagnosis Inadequate oral intake Diagnosis Progress(for reassessment Continues documentation) #1 Nutrition Diagnosis Malnutrition Diagnosis Progress(for reassessment Continues documentation) Is patient on ventilator? No Is Patient Ambulatory and/or Out of Bed Yes REE-([place]-St. Jeor-ambulatory/OOB) [ 1318.200 NUTR.MSJOOB] Kcal/Kg value to use for calculation 43 Approximate Energy Requirements Using 1780 kcal/Kg Calculation Used for Recommendations Kcal/kg Additional Notes Pro: 50-62 g (1.2-1.5 g/kg) Fluid: 1 ml/kcal Nutrition Intervention Change Diet Order: Continue Cardiac or TF if pt continues refusing meals Goal #1 Meet at least 80% energy and protein needs Goal #2 Wt gain/maintenance Anticipated Discharge Needs: Cardiac diet Follow-Up By: 06/20/20 Additional Comments F/U for intakes and need for TF <ADRIAN SOTO E - Last Filed: 06/16/20 17:44> Assessment and Plan Assessment and plan: I saw and evaluated the patient. I agree with the findings and the plan of care as documented in the Nurse Practitioner's~note, with the following corrections and additions. Hospitalist Physical - Constitutional Vitals: Temp Pulse Resp BP Pulse Ox 97.4 F L 102 H 18 125/83 100 06/16/20 11:44 06/16/20 11:44 06/16/20 11:44 06/16/20 11:44 06/16/20 11:44 Results - Labs CBC & Chem 7: 10/26/20 07:53 06/15/20 10:42 Labs: Laboratory Last Values WBC 5.0 K/mm3 (4.5-11.0) 06/12/20 07:53 RBC 3.48 M/mm3 (3.65-5.03) L 06/12/20 07:53 Hgb 11.2 gm/dl (10.1-14.3) 06/12/20 07:53 Hct 31.5 % (30.3-42.9) 06/12/20 07:53 MCV 90 fl (79-97) 06/12/20 07:53 MCH 32 pg (28-32) 06/12/20 07:53 MCHC 36 % (30-34) H 06/12/20 07:53 RDW 14.6 % (13.2-15.2) 06/12/20 07:53 Plt Count 179 K/mm3 (140-440) 06/12/20 07:53 Lymph % (Auto) 26.4 % (13.4-35.0) 06/12/20 01:30 [place]assen % (Auto) 13.2 % (0.0-7.3) H 06/12/20 01:30 Eos % (Auto) 0.3 % (0.0-4.3) 06/12/20 01:30 Baso % (Auto) 0.4 % (0.0-1.8) 06/12/20 01:30 Lymph # (Auto) 1.3 K/mm3 (1.2-5.4) 06/12/20 01:30 [place]assen # (Auto) 0.6 K/mm3 (0.0-0.8) 06/12/20 01:30 Eos # (Auto) 0.0 K/mm3 (0.0-0.4) 06/12/20 01:30 Baso # (Auto) 0.0 K/mm3 (0.0-0.1) 06/12/20 01:30 Seg Neutrophils % 59.7 % (40.0-70.0) 06/12/20 01:30 Seg Neutrophils # 2.9 K/mm3 (1.8-7.7) 06/12/20 01:30 Sodium 138 mmol/L (137-145) 06/15/20 10:42 Potassium 3.6 mmol/L (3.6-5.0) 06/15/20 10:42 Chloride 100.7 mmol/L (98-107) 06/15/20 10:42 Carbon Dioxide 29 mmol/L (22-30) 06/15/20 10:42 Anion Gap 12 mmol/L 06/15/20 10:42 BUN 4 mg/dL (7-17) L 06/15/20 10:42 Creatinine 0.6 mg/dL (0.6-1.2) 06/15/20 10:42 Estimated GFR > 60 ml/min 06/15/20 10:42 BUN/Creatinine Ratio 7 % 06/15/20 10:42 Glucose 95 mg/dL (65-100) 06/15/20 10:42 POC Glucose 105 mg/dL (70-105) 06/12/20 16:42 Calcium 9.4 mg/dL (8.4-10.2) 06/15/20 10:42 Magnesium 1.90 mg/dL (1.7-2.3) 06/13/20 13:49 TSH 0.717 mlU/mL (0.270-4.200) 06/13/20 13:49 Phenobarbital 19.1 ug/mL (15.0-40.0) 06/15/20 10:42 Coronavirus (PCR) Negative (Negative) 06/12/20 08:58 - Diagnostic Impressions Diagnostic Impressions: Echocardiogram 06/13/20 00:00 Transthoracic Echocardiogram Indication: PSVT BP: 131/80 HR: 89 Conclusions *The left ventricular chamber size is mildly dilated. *Global left ventricular systolic function is moderate to severely decreased. *The estimated ejection fraction is 30-35%. *There is mild mitral regurgitation. *There is trace tricuspid regurgitation. *The inferior vena cava is dilated. Findings Left Ventricle: The left ventricular chamber size is mildly dilated. Mild concentric left ventricular hypertrophy is observed. Global left ventricular systolic function is moderate to severely decreased. The estimated ejection fraction is 30-35%. Left Atrium: The left atrial chamber size is normal. Right Ventricle: The right ventricular cavity size is normal. Right Atrium: The right atrial cavity size is normal. Aortic Valve: The aortic valve is trileaflet. The aortic valve leaflets are mildly thickened. There is no evidence of aortic regurgitation. There is no evidence of aortic stenosis. Mitral Valve: The mitral valve leaflets are mildly thickened. There is mild mitral regurgitation. There is no evidence of mitral stenosis. Tricuspid Valve: There is trace tricuspid regurgitation. No pulmonary hypertension is noted. Pulmonic Valve: There is trace pulmonic regurgitation. Pericardium: There is no pericardial effusion. Aorta: There is no dilatation of the ascending aorta. There is no dilatation of the aortic root. Venous: The inferior vena cava is dilated. Measurements Chambers 2D Name Value Normal Range IVSd (2D) 0.91 cm (0.6 - 1.1) LVPWd (2D) 0.94 cm (0.6 - 1.1) LVIDd (2D) 4.28 cm (3.7 - 5.6) LVIDs (2D) 3.42 cm (2 - 3.8) LV FS (2D) 19.99 % - EF Teichholz (2D) 41.25 % - Ao root diameter (2D) 2.93 cm (2 - 3.7) Volumes/Mass Name Value Normal Range LA ESV SP 4CH (A/L) 14 ml - LA ESV SP 2CH (A/L) 18.4 ml - LA ESV BP (A/L) 16.6 ml - LA ESV BP (A/L) index 11.86 ml/m2 - LA ESV SP 4CH (MOD) 12.15 ml - LA ESV SP 2CH (MOD) 17.95 ml - LA ESV BP (MOD) 15.18 ml - LA ESV BP (MOD) index 10.84 ml/m2 - Diastolic/Systolic Function Name Value Normal Range MV E-wave Vmax 0.56 m/sec - MV deceleration time 145.94 msec - MV A-wave Vmax 0.71 m/sec - MV E:A ratio 0.79 ratio - Aortic Valve Name Value Normal Range AV Vmax 1.01 m/sec - AV VTI 18.42 cm - AV peak gradient 4.12 mmHg - AV mean gradient 2.61 mmHg - LVOT diameter 2.05 cm - LVOT Vmax 0.84 m/sec - LVOT VTI 14.23 cm - LVOT peak gradient 2.82 mmHg - LVOT mean gradient 1.39 mmHg - SV LVOT 46.81 ml - CAMILLE (continuity Vmax) 2.72 cm2 - CAMILLE (continuity VTI) 2.54 cm2 - Tricuspid Valve Name Value Normal Range IVC diameter 2.04 cm (1.2 - 2.3) Pulmonic Valve/Qp:Qs Name Value Normal Range PV acceleration time 98.95 msec - Plaza/IV: Voiding Method Toilet IV Catheter Type [Right Peripheral IV Forearm] Nutrition/Malnutrition Assess - Dietary Evaluation Nutrition/Malnutrition Findings: Nutrition Notes Start: 06/14/20 11: 31 Freq: Status: Active Protocol: Document 06/16/20 09:50 BK (Rec: 06/16/20 09:56 GUME [id number]) Co-Sign 06/16/20 09:50 LM Nutrition Notes Initial or Follow up Reassessment Other Pertinent Diagnosis bipolar/depression, seizure disorder, hx medication noncompliance Current Diet Cardiac Labs/Tests BUN 4 Pertinent Medications Reviewed Height 5 ft 4 in Weight 41.4 kg Ten Sleep Body Weight (kg) 54.54 BMI 15.6 Weight Status Underweight Subjective/Other Information F/U for intakes and plan of care. Pt reports no intakes and refused offer for ONS. Per chart, pt is homeless and given list of shelters by CM. Pt D/C order on hold d/t pt mental health. Burn Absent Trauma Absent Food Allergy No Current % PO Negligible Minimum of two criteria Yes Energy Intake (severe) < or equal to 50% Estimated Energy Requirement > or equal to 5 days Interpretation of Weight Loss (severe) >7.5% in 3 months Muscle Mass Moderate Depletion (severe) Reduced Transportation Economics Teacher Strength Measurably Reduced (severe) #2 Nutrition Diagnosis Inadequate oral intake Diagnosis Progress(for reassessment Continues documentation) #1 Nutrition Diagnosis Malnutrition Diagnosis Progress(for reassessment Continues documentation) Is patient on ventilator? No Is Patient Ambulatory and/or Out of Bed Yes REE-([place]-St. Jeor-ambulatory/OOB) [ 1318.200 NUTR.MSJOOB] Kcal/Kg value to use for calculation 43 Approximate Energy Requirements Using 1780 kcal/Kg Calculation Used for Recommendations Kcal/kg Additional Notes Pro: 50-62 g (1.2-1.5 g/kg) Fluid: 1 ml/kcal Nutrition Intervention Change Diet Order: Continue Cardiac or TF if pt continues refusing meals Goal #1 Meet at least 80% energy and protein needs Goal #2 Wt gain/maintenance Anticipated Discharge Needs: Cardiac diet Follow-Up By: 06/20/20 Additional Comments F/U for intakes and need for TF
[2020-06-16 12:33] VITALS: BP 125/83
== END 2020-06-16 13:24 | disposition home or self-care (01) | DRG 101 ==
LOC: ED 00:53 → 4A 04:07 → OBSVTOIN 06-15 09:12
PROVIDERS: ADMIT Internal Medicine; ATTEND Internal Medicine
DX: G40.909 Epilepsy, unspecified, not intractable, without status epilepticus (principal); E87.1 Hypo-osmolality and hyponatremia; I47.2 Ventricular tachycardia; I42.0 Dilated cardiomyopathy; I50.22 Chronic systolic (congestive) heart failure; E87.6 Hypokalemia; M54.9 Dorsalgia, unspecified; G89.29 Other chronic pain; F43.10 Post-traumatic stress disorder, unspecified; Z20.828 Contact with and (suspected) exposure to other viral communicable diseases; Z88.8 Allergy status to other drugs, medicaments and biological substances; J45.909 Unspecified asthma, uncomplicated; Z91.14 Patient's other noncompliance with medication regimen; F31.9 Bipolar disorder, unspecified; E87.8 Other disorders of electrolyte and fluid balance, not elsewhere classified; I11.0 Hypertensive heart disease with heart failure
CPT/HCPCS: 36415; 70450; 78452; 80048; 80184; 82962; 83735; 84132; 84443; 85025; 85027; 93005; 93017; 93306; 96361; 96374; G0378; A9502; J1650; J2060; J2785; J7030; U0003